=== PATIENT | male | born 1950 | race Caucasian/White ===

== ENCOUNTER 2016-08-15 13:45 | Inpatient (IN) ==
[~2016-08-15 13:45] MED LIST: GLYCOPYRROLATE 0.4 MG/2 ML VIAL ONE; LIDOCAINE 1% 5 ML VIAL ONE; NEOSTIGMINE 10 MG/10 ML VIAL ONE; ONDANSETRON 4 MG/2 ML VIAL ONE; PHENYLEPHRINE 1 MG/10 ML SYRINGE IV ONE; PROPOFOL 200 MG/20 ML VIAL IV ONE; ROCURONIUM 100 MG/10 ML VIAL IV ONE
--- NOTE | 2016-08-15 14:19 | Emergency Department Note ---
Arrival - Arrival Chief Complaint: Extremity Injury Stated Complaint: Hip Pain ED Nursing Triage Note: [facility]. A chair broke with pt two days ago. RLE shortening and rotation noted. Morphine 4 mg and Zofran 4 mg given [employer]. +Movement and sensation. Mode of Arrival: Stretcher Limitations: No Limitations Source: Patient Time Seen by Provider: 08/15/16 14:11 - History of Present Illness HPI Narrative: This 66-year-old white male presents with a history of injuring his hip 2 days ago when a chair he was sitting in collapsed. Initially he went to the ER where he was originally told he had no fracture. He was sent home but could not ambulate and was in persistent pain. Last night he was called by the emergency room to return for reevaluation and was found to have a subcapital fracture of the proximal right femur on CT. The patient is status post a right distal femoral fracture repair by Dr. Guadarrama in October of this year. With that as well as a prior history of CVA and right sided weakness he has had difficulty ambulation even before this most recent injury. Currently at rest in bed, he is in no discomfort or distress. Onset (ago): day(s) (patient presents 2 days post-onset of symptoms) Consistency: constant Severity: moderate Severity scale (1-10): 5 Allergies/Adverse Reactions: Allergies Allergy/AdvReac Type Severity Reaction Status Date / Time No Known Allergies Allergy Unverified 11/05/15 11:49 Home Medications: Home Medications Medication Instructions Recorded Confirmed Type Atorvastatin [Lipitor] 10 mg PO DAILY 11/05/15 08/15/16 History Baclofen 20 mg PO TID 11/05/15 08/15/16 History Citalopram [CeleXA] 20 mg PO DAILY 11/05/15 08/15/16 History Labetalol Tab [Trandate Tab] 200 mg TID 11/05/15 08/15/16 History Nifedipine [Nifedipine ER] 90 mg PO DAILY 11/05/15 08/15/16 History Omeprazole 20 mg DAILY 11/05/15 08/15/16 History hydrALAZINE TAB [Apresoline Tab] 50 mg PO TID 11/05/15 08/15/16 History Albuterol Sulfate [Proair HFA] 2 puff INH Q4H PRN 08/15/16 08/15/16 History Meloxicam [Mobic] 7.5 mg PO DAILY PRN 08/15/16 08/15/16 History Tolterodine Tartrate [Tolterodine 4 mg PO DAILY 08/15/16 08/15/16 History LA] Review of System - Review of System 12 point system: reviewed and no additional remarkable complaints except as stated - Review of System Musculoskeletal: Present: as per HPI Medical,Surgical,& Family Hx - Medical History Cardio: History of: Hypertension Neurology: History of: Cerebrovascular Accident (2009. Right side weakness) Endocrine: History of: Dyslipidemia Genitourinary: History of: Kidney Stones Musculoskeletal: History of: Musculoskeletal Problems (arthritis in L shoulder) - Surgical History Abdominal Surgeries: Surgical HX of: Colonoscopy (2015 dr beltrán) - Family History Family History: Reports;: Family Cancer (mother) - Social History Smoking Status: Unknown if ever smoked Frequency of Alcohol Use: None Type of Drug Use: None Exam Physical Examination: GENERAL: Well developed, well nourished white male in no acute distress. HEENT: Normocephalic. No trauma. Moist mucous membranes. EOMI. PERRLA. ENT clear NECK: Supple. No adenopathy. CARDIAC: Regular. No murmurs heart rate 76 CHEST: Clear to auscultation. No respiratory distress. O2 sat 95% ABDOMEN: Soft. Nontender. Active bowel sounds. EXTREMITIES: No trauma. Shortening and external rotation of the right lower extremity No pedal edema. SKIN: No diaphoresis. No rash. NEURO: Alert. Right upper extremity weakness compared to the left with left lower extremity motor activity intact. Vital Signs: Vital Signs Temperature 97.9 F 08/15/16 13:45 Pulse Rate 76 08/15/16 13:45 Respiratory Rate 18 08/15/16 13:45 Blood Pressure 159/97 08/15/16 13:45 O2 Sat by Pulse Oximetry 95 08/15/16 13:45 Course - Reevaluation(s) Reevaluation #1: Discussed with patient the need for surgical repair. - Consultations Consultation #1: Dr. Guadarrama consulted Disposition Clinical Impression: subcapital fracture proximal right femur, hypertension Case discussed with: patient Disposition: Still a Patient Condition: Stable Time of Disposition: 14:52
[2016-08-15] MEDS ORDERED: HYDROmorphone 2 MG/1 ML VIAL IV PRN (14:54)
[2016-08-15] MEDS ORDERED: ATORVASTATIN 40 MG TABLET PO STA (14:54)
[2016-08-15] MEDS ORDERED: ONDANSETRON 4 MG/2 ML VIAL IV PRN (14:54)
[2016-08-15 15:00] LABS: Basophils % 0.2 % (0.0-0.8); Eosinophils # 0.5 10*3/uL (0.0-0.87); Eosinophils % 4.6 % (0.00-10.9); Hematocrit 36.4 VOL% (42.0-52.0); Hemoglobin 12.7 GM/DL (14.0-18.0); Immature Granulocytes % 0.4 %; Immature Granulocytes Absolute 0.04 #; Lymphocytes % 17.7 % (21.2-54.2); Mean Corpuscular HGB Conc 34.9 GM/DL (32-36); Mean Corpuscular Hemoglobin 31 PG (27-34); Mean Corpuscular Volume 87.3 FL (87-102); Monocytes # 0.7 10*3/uL (0.11-0.8); Monocytes % 6.3 % (1.7-12.7); Neutrophils # 7.8 10*3/uL (1.4-7.4); Neutrophils % 70.8 % (38.7-73.9); Platelet Count 186 10*3/uL (130-400); Red Blood Count 4.17 10*6/uL (3.8-5.5); Red Cell Distribution Width 12.9 % (9.3-17.3)
[2016-08-15] MEDS ORDERED: BACLOFEN 20 MG TABLET PO SCH (15:00)
[2016-08-15] MEDS ORDERED: PANTOPRAZOLE 40 MG TABLET PO SCH (15:00)
--- NOTE | 2016-08-15 15:09 | XRay Report ---
XR chest 1V portable Indication: Preoperative respiratory evaluation.] Fracture. Comparison: Chest x-ray 11/05/2015. Technique: Portable AP chest was performed. Findings: Borderline to mild cardiomegaly is present. Pulmonary vasculature appears within normal limits. Lungs are clear. Minimal elevation of the left hemidiaphragm is noted. Bones and soft tissues are unremarkable. Impression: 1. No evidence of acute pathology. Borderline to mild cardiomegaly. 08/15/2016 3:04 PM PROCEDURE INTERPRETED AT [facility] DEPARTMENT OF RADIOLOGY Final Report Signed by: Dr. Seth Mendoza
--- NOTE | 2016-08-15 15:09 | XRay Report ---
XR hip 2v w pelvis RT Indication: Fracture. Comparison: None. Technique: AP pelvis with additional AP views of the right hip in internal and external rotation. Findings: Femoral neck fracture cannot be excluded at the base of the femoral head. The right hip and femur are not rotated such that the femoral neck can be seen as entirety. Otherwise bony structure of the lower lumbar spine, pelvis, proximal left femur is unremarkable in appearance. Impression: 1. Incomplete visualization of the right femoral neck. The femoral neck fracture at the base of the femoral head is suggested. 08/15/2016 3:03 PM PROCEDURE INTERPRETED AT [facility] DEPARTMENT OF RADIOLOGY Final Report Signed by: Dr. Seth Mendoza
--- NOTE | 2016-08-15 15:11 | EKG Report ---
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
[2016-08-15 15:13] LABS: PT Patient Result 10.8 SECS; Partial Thromboplastin Time 31.9 SECS (0-40)
[2016-08-15 15:17] LABS: Albumin 3.3 G/DL (3.4-5.0); Bilirubin,Total 0.7 MG/DL (0.2-1.0); Calcium 8.4 MG/DL (8.5-10.1); Osmolality,Calculated 296.6 MOS/KG (273-304); Potassium 3.8 MMOL/L (3.5-5.1)
--- NOTE | 2016-08-15 15:51 | Hospitalist Consult Note ---
Assessment and Plan - Time spent with patient Time spent with patient: Greater than 30 minutes (1) Closed fracture of right femur Status: Acute Assessment and plan: Patient has right hip fracture. We will defer plans to the orthopedic service including timing of DVT prophylaxis. I suspect the swelling of his right lower extremity is secondary to his fracture since it did occur Th night he's been relatively sedentary and will obtain venous Doppler to rule out DVT. He is medically acceptable for operative repair pending above studies. Current Visit: No (2) Hyperlipidemia Status: Chronic Assessment and plan: We'll continue his current medical regimen. Current Visit: No (3) Hypertension Status: Chronic Assessment and plan: He is hemodynamically stable. We'll continue his current medical regimen and follow along with you. Current Visit: No Qualifiers: Hypertension type: essential hypertension Qualified Code(s): I10 - Essential (primary) hypertension (4) Chronic kidney disease Status: Chronic Assessment and plan: Patient has chronic kidney disease with a creatinine of 1.7 which is relatively stable. We'll begin hydration and avoid any potential nephrotoxic insults. Current Visit: Yes Qualifiers: Chronic kidney disease stage: stage 3 (moderate) Qualified Code(s): N18.3 - Chronic kidney disease, stage 3 (moderate) (5) CVA (cerebral vascular accident) Status: Chronic Assessment and plan: Patient has had a remote CVA with some mild right-sided weakness however states he has been ambulatory prior to his right lower extremity fracture in October. Since that time he occasionally uses or at least keeps his walker close by. He is otherwise stable has no recent signs or symptoms of new events. Current Visit: No History of Present Illness - Data of Consult Patient: known to practice within the last 3 years Consult date: 08/15/16 Requesting Physician: Tacos Guadarrama Primary care physician: Marv Griffin - Consult Narrative Reason for consult: preoperative evaluation and med management History of present illness: Mr. Braden is a 66 year old male who states he was having dinner Th night when he scooted his chair back and it broke causing him to fall sustaining injury to his right hip. He was seen at the emergency room at [facility] resume was x-rayed and sent home. He was uncomfortable and didn't sleep well night or Wednesday night. His states they got a call from [facility] saying the radiologist found a possible fracture and they needed to return. They were seen today and had a CT which revealed a fracture and he was transferred to [facility]. He denies any fever, chills, chest pain, shortness breath, palpitations, syncope, abdominal pain, nausea, vomiting, diarrhea, constipation , melena, hematochezia, hematemesis, dysuria, hematuria, urinary frequency urgency or incontinence. He's had no prior history of coronary artery disease, CHF, DVT, PE, COPD. Of note he was hospitalized here in October 2015 where he underwent open reduction and internal fixation of right femoral condyle fracture. CC: Tacos Guadarrama MD - Home Medications and Allergies Home Medications: Home Medications Medication Instructions Recorded Confirmed Type Atorvastatin [Lipitor] 10 mg PO DAILY 11/05/15 08/15/16 History Baclofen 20 mg PO TID 11/05/15 08/15/16 History Citalopram [CeleXA] 20 mg PO DAILY 11/05/15 08/15/16 History Labetalol Tab [Trandate Tab] 200 mg TID 11/05/15 08/15/16 History Nifedipine [Nifedipine ER] 90 mg PO DAILY 11/05/15 08/15/16 History Omeprazole 20 mg DAILY 11/05/15 08/15/16 History hydrALAZINE TAB [Apresoline Tab] 50 mg PO TID 11/05/15 08/15/16 History Albuterol Sulfate [Proair HFA] 2 puff INH Q4H PRN 08/15/16 08/15/16 History Meloxicam [Mobic] 7.5 mg PO DAILY PRN 08/15/16 08/15/16 History Tolterodine Tartrate [Tolterodine 4 mg PO DAILY 08/15/16 08/15/16 History LA] Allergies/Adverse Reactions: Allergies Allergy/AdvReac Type Severity Reaction Status Date / Time No Known Allergies Allergy Unverified 11/05/15 11:49 Medical,Surgical,& Family Hx - Medical History Cardio: History of: Hypertension Neurology: History of: Cerebrovascular Accident (2009. Right side weakness) Endocrine: History of: Dyslipidemia Genitourinary: History of: Kidney Stones Musculoskeletal: History of: Musculoskeletal Problems (arthritis in L shoulder) - Surgical History Abdominal Surgeries: Surgical HX of: Colonoscopy (2015 dr beltrán) Orthopedic Surgeries: Surgical HX of;: Orthopedic Surgery (up reduction internal fixation right lateral femoral condyle in October,) - Family History Family History: Reports;: Family Cancer (mother) - Social History Smoking Status: Never smoker Frequency of Alcohol Use: None Type of Drug Use: None Marital Status: Lives With:: Spouse 12 point system: reviewed and no additional remarkable complaints except as stated Exam - Constitutional Vitals: Period Temp Pulse Resp BP Sys/Rincon Pulse Ox Last 24 Hr 73 18 166/89 92 General appearance: no acute distress - Head Head exam: Present: normocephalic, atraumatic - Eye Eye exam: Present: EOMI Pupils: Present: ALIN - ENT ENT exam: Present: normal oropharynx - Neck Neck exam: Absent: lymphadenopathy, meningismus, tenderness, thyromegaly - Respiratory Respiratory exam: Present: clear to auscultation bilaterally. Absent: rales, rhonchi, wheezes - Cardiovascular Cardiovascular exam: Present: regular rate and rhythm. Absent: gallop, JVD, systolic murmur, tachycardia - GI/Abdominal GI/Abdominal exam: Present: normal bowel sounds, soft. Absent: distended, mass , tenderness, rebound - Extremities Exam Extremities exam: Present: normal capillary refill, other (there is tenderness about the right hip. He does have swelling of his right thigh and right calf. Pulses are equal and intact.). Absent: calf tenderness - Back Exam Back exam: Present: normal inspection - Neurological Exam Neurological exam: Present: alert, oriented X3, CN II-XII intact. Absent: motor sensory deficit - Psychiatric Psychiatric exam: Present: normal affect, normal mood. Absent: agitated, anxious - Skin Skin exam: Present: warm, dry. Absent: erythema, rash Results - Labs CBC & BMP: 08/15/16 14:42 08/15/16 14:43 Lab Results: I have reviewed the past 24 hour labs - EKG EKG shows: sinus rhythm - Diagnostic Findings Procedure: Chest x-ray: report reviewed by me, X-ray: report reviewed by me Specialty Discharge - Follow Up or Referrals - Discharge Medications No Action hydrALAZINE TAB [Apresoline Tab] 50 mg PO TID Atorvastatin [Lipitor] 10 mg PO DAILY Citalopram [CeleXA] 20 mg PO DAILY Baclofen 20 mg PO TID Omeprazole 20 mg DAILY Nifedipine [Nifedipine ER] 90 mg PO DAILY Labetalol Tab [Trandate Tab] 200 mg TID Tolterodine Tartrate [Tolterodine LA] 4 mg PO DAILY Albuterol Sulfate [Proair HFA] 2 puff INH Q4H PRN PRN Reason: Shortness Of Breath/Wheezing Meloxicam [Mobic] 7.5 mg PO DAILY PRN PRN Reason: Pain
[2016-08-15] MEDS ORDERED: ALBUTEROL 2.5 MG/3 ML NEB RESP TX PRN (16:12)
[2016-08-15] MEDS: SODIUM CHLOR 0.45% KCL 20 MEQ 20 MEQ/1,000 ML BAG IV SCH (16:57)
--- NOTE | 2016-08-15 18:02 | Orthopedic History & Physical ---
Assessment and Plan (1) Subcapital fracture of neck of right femur Status: Acute Assessment and plan: I explained the injury in detail to Mr. Braden and his today. The fracture is valgus impacted, so I have recommended closed reduction pertains pinning of the right femoral neck. We'll plan on performing the procedure tomorrow. Questions were answered to their satisfaction. Risks, alternatives, and benefits to undergoing this procedure were discussed in great detail, the patient voiced understanding desire proceed. Risks discussed included, but were not limited to, bleeding, infection, damage to arteries and nerves, nonunion, malunion, need for revision surgery, as well as medical complications. He has been having increased falls recently so I think swing bed or rehabilitation postoperatively would be a good consideration. Current Visit: Yes History of Present Illness Chief complaint: right hip pain History of present illness: Mr. Braden is a 66 year old male who had a fall on night. He was seen at [facility] discharged home. On Wednesday, they were called and informed he has suspected fracture and the knee more workup. He was then noted to have a right femoral neck fracture. He is transferred here for further care. He complains of pain in the right hip. I have seen him previously for a right distal femur fracture. He has a history of CVA with spasticity of the right upper and lower extremities. Home Medications Medication Instructions Recorded Confirmed Type Atorvastatin [Lipitor] 10 mg PO DAILY 11/05/15 08/15/16 History Baclofen 20 mg PO TID 11/05/15 08/15/16 History Citalopram [CeleXA] 20 mg PO DAILY 11/05/15 08/15/16 History Labetalol Tab [Trandate Tab] 200 mg TID 11/05/15 08/15/16 History Nifedipine [Nifedipine ER] 90 mg PO DAILY 11/05/15 08/15/16 History Omeprazole 20 mg DAILY 11/05/15 08/15/16 History hydrALAZINE TAB [Apresoline Tab] 50 mg PO TID 11/05/15 08/15/16 History Albuterol Sulfate [Proair HFA] 2 puff INH Q4H PRN 08/15/16 08/15/16 History Meloxicam [Mobic] 7.5 mg PO DAILY 08/15/16 08/15/16 History Tolterodine Tartrate [Tolterodine 4 mg PO DAILY 08/15/16 08/15/16 History LA] Allergies Allergy/AdvReac Type Severity Reaction Status Date / Time No Known Allergies Allergy Unverified 11/05/15 11:49 12 point system: reviewed and no additional remarkable complaints except as stated Medical,Surgical,& Family Hx - Medical History Cardio: History of: Hypertension Neurology: History of: Cerebrovascular Accident (2009. Right side weakness) HEENT: History of: Eye Problem Endocrine: History of: Dyslipidemia Genitourinary: History of: Kidney Stones Musculoskeletal: History of: Musculoskeletal Problems (arthritis in L shoulder) - Surgical History Abdominal Surgeries: Surgical HX of: Appendectomy, Colonoscopy (2015 dr beltrán) Orthopedic Surgeries: Surgical HX of;: Orthopedic Surgery (up reduction internal fixation right lateral femoral condyle in October,) - Family History Family History: Reports;: Family Cancer (mother), Family Heart Disease, Family Hypertension - Social History Smoking Status: Never smoker Frequency of Alcohol Use: None Type of Drug Use: None Exam - Constitutional Vitals: Period Temp Pulse Resp BP Sys/Rincon Pulse Ox Last 24 Hr 98.2 F 73-73 17-18 117-166/61-89 92-98 Exam: General appearance: no acute distress Head exam: normal inspection Eye exam: EOMI Neck exam: normal inspection Respiratory exam: clear to auscultation bilaterally Cardiovascular exam: regular GI/Abdominal exam: normal bowel sounds Right lower extremity: Hip was externally rotated, knee slightly flexed. He has a good distal pulse. He has pain with any motion of the hip. There is no ecchymosis or obvious deformity noted. Results - Labs CBC & BMP: 08/15/16 14:42 08/15/16 14:43 - Diagnostic Findings Procedure: X-ray: image reviewed by me (x-ray and CT of the right hip show a valgus impacted fracture right femoral neck in the subcapital region)
[2016-08-15] MEDS ORDERED: ceFAZolin 2,000 MG in PREMIX 1 EACH IV ONE (18:04)
--- NOTE | 2016-08-15 19:09 | Ultrasound Report ---
US venous doppler LE RT Indication: Right lower extremity pain and swelling. Comparison: None. Technique: Using transcutaneous probe, color Doppler, spectral Doppler, and grayscale images prior to and following compression were obtained of the right lower extremity. Ultrasound images were captured and stored. Interrogated venous structures include the right common femoral vein, superficial femoral vein (proximal, mid, and distal), and popliteal vein. Findings: There is no evidence of thrombus within the interrogated right lower extremity venous structures. Color flow and spectral flow are present within the imaged venous segments. Impression: 1. No evidence of venous thrombosis. 08/15/2016 7:06 PM PROCEDURE INTERPRETED AT [facility] DEPARTMENT OF RADIOLOGY Final Report Signed by: Dr. Seth Mendoza
[2016-08-15] MEDS ORDERED: TOLTERODINE 2 MG TABLET PO SCH (21:00)
[2016-08-15] MEDS: BACLOFEN 20 MG TABLET PO SCH (21:51)
[2016-08-15] MEDS: LABETALOL 200 MG TABLET PO SCH (21:51)
[2016-08-16] MEDS: SODIUM CHLOR 0.45% KCL 20 MEQ 20 MEQ/1,000 ML BAG IV SCH ×3 (00:53→18:33)
[2016-08-16] MEDS ORDERED: HYDROmorphone 2 MG/1 ML VIAL IV PRN (02:52)
[2016-08-16] MEDS ORDERED: diphenhydrAMINE 50 MG/1 ML VIAL IV PRN (02:53)
[2016-08-16 04:42] LABS: Basophils % 0.3 % (0.0-0.8); Eosinophils # 0.6 10*3/uL (0.0-0.87); Eosinophils % 6.4 % (0.00-10.9); Hematocrit 35.5 VOL% (42.0-52.0); Hemoglobin 11.9 GM/DL (14.0-18.0); Immature Granulocytes % 0.6 %; Immature Granulocytes Absolute 0.06 #; Lymphocytes # 2.1 10*3/uL (1.4-4.0); Lymphocytes % 21.4 % (21.2-54.2); Mean Corpuscular HGB Conc 33.5 GM/DL (32-36); Mean Corpuscular Hemoglobin 30 PG (27-34); Mean Platelet Volume 9.4 FL (9.6-12.0); Monocytes # 0.7 10*3/uL (0.11-0.8); Monocytes % 7.3 % (1.7-12.7); Neutrophils # 6.3 10*3/uL (1.4-7.4); Platelet Count 188 10*3/uL (130-400); Red Blood Count 3.99 10*6/uL (3.8-5.5); Red Cell Distribution Width 13.1 % (9.3-17.3); White Blood Count 9.9 10*3/uL (4.5-13.71)
[2016-08-16 05:12] LABS: Calcium 8.4 MG/DL (8.5-10.1); Osmolality,Calculated 295.7 MOS/KG (273-304); Potassium 3.9 MMOL/L (3.5-5.1)
[2016-08-16] MEDS ORDERED: ceFAZolin 2,000 MG in PREMIX 1 EACH IV ONE (06:00)
[2016-08-16] MEDS ORDERED: DIAZEPAM 5 MG TABLET PO ONE (06:26)
[2016-08-16] MEDS ORDERED: FAMOTIDINE 20 MG TABLET PO ONE (06:26)
[2016-08-16] MEDS ORDERED: LACTATED RINGERS 1,000 ML IV SCH (06:30)
--- NOTE | 2016-08-16 07:01 | Hospitalist Progress Note ---
Assessment and Plan - Time spent with patient Time spent with patient: Less than 30 minutes (1) Closed fracture of right femur Status: Acute Assessment and plan: 08/15/16: Patient has right hip fracture. We will defer plans to the orthopedic service including timing of DVT prophylaxis. I suspect the swelling of his right lower extremity is secondary to his fracture since it did occur Th night he's been relatively sedentary and will obtain venous Doppler to rule out DVT. He is medically acceptable for operative repair pending above studies. 08/16/16: Patient is now postop without complaints and is doing well. Further postop care per orthopedics. Current Visit: No (2) Hyperlipidemia Status: Chronic Assessment and plan: We'll continue his current medical regimen. Current Visit: No (3) Hypertension Status: Chronic Assessment and plan: Blood pressures currently controlled. We'll continue his current regimen. Current Visit: No Qualifiers: Hypertension type: essential hypertension Qualified Code(s): I10 - Essential (primary) hypertension (4) Chronic kidney disease Status: Chronic Assessment and plan: 08/15/16: Patient has chronic kidney disease with a creatinine of 1.7 which is relatively stable. We'll begin hydration and avoid any potential nephrotoxic insults. 08/16/16: Renal function is stable. We'll continue to follow. Current Visit: Yes Qualifiers: Chronic kidney disease stage: stage 3 (moderate) Qualified Code(s): N18.3 - Chronic kidney disease, stage 3 (moderate) (5) CVA (cerebral vascular accident) Status: Chronic Assessment and plan: Patient has had a remote CVA with some mild right-sided weakness however states he has been ambulatory prior to his right lower extremity fracture in October. Since that time he occasionally uses or at least keeps his walker close by. He is otherwise stable has no recent signs or symptoms of new events. Current Visit: No Hospitalist: Subjective Interval history: Patient is now postop in the room. He has no complaints and his eating lunch. He denies any chest pain, shortness breath, abdominal pain, nausea, vomiting. Exam - Constitutional Vitals: Period Temp Pulse Resp BP Sys/Rincon Pulse Ox Last 24 Hr 97.8 F-99.2 F 70-88 17-20 117-166/61-89 92-99 General appearance: no acute distress - Head Head exam: Present: normocephalic, atraumatic - Eye Eye exam: Present: EOMI Pupils: Present: ALIN - ENT ENT exam: Present: normal oropharynx - Neck Neck exam: Present: normal inspection - Respiratory Respiratory exam: Present: clear to auscultation bilaterally. Absent: rales, rhonchi, wheezes - Cardiovascular Cardiovascular exam: Present: regular rate and rhythm - GI/Abdominal GI/Abdominal exam: Present: normal bowel sounds, soft. Absent: mass, tenderness , rebound - Extremities Exam Extremities exam: Absent: calf tenderness, edema - Back Exam Back exam: Present: normal inspection - Neurological Exam Neurological exam: Present: alert, oriented X3, CN II-XII intact. Absent: motor sensory deficit - Psychiatric Psychiatric exam: Present: normal affect, normal mood. Absent: agitated, anxious - Skin Skin exam: Present: warm, dry. Absent: erythema, rash Results - Labs CBC & BMP: 08/16/16 04:05 08/16/16 04:05 Lab Results: I have reviewed the past 24 hour labs - Diagnostic Findings Procedure: Ultrasound: report reviewed by me (No DVT) Specialty Discharge - Follow Up or Referrals - Discharge Medications No Action hydrALAZINE TAB [Apresoline Tab] 50 mg PO TID Atorvastatin [Lipitor] 10 mg PO DAILY Citalopram [CeleXA] 20 mg PO DAILY Baclofen 20 mg PO TID Omeprazole 20 mg DAILY Nifedipine [Nifedipine ER] 90 mg PO DAILY Labetalol Tab [Trandate Tab] 200 mg TID Tolterodine Tartrate [Tolterodine LA] 4 mg PO DAILY Albuterol Sulfate [Proair HFA] 2 puff INH Q4H PRN PRN Reason: Shortness Of Breath/Wheezing Meloxicam [Mobic] 7.5 mg PO DAILY
[2016-08-16] MEDS ORDERED: MAGNESIUM HYDROXIDE SUSP 30 ML UDCUP PO PRN (08:00)
[2016-08-16] MEDS ORDERED: ACETAMINOPHEN 325 MG TABLET PO PRN (08:00)
[2016-08-16] MEDS ORDERED: ePHEDrine 50 MG/ML AMP ONE (08:16)
[2016-08-16] MEDS ORDERED: SEVOFLURANE 1 UNIT/15 MINUTE INH ONE (08:20)
--- NOTE | 2016-08-16 08:24 | Anesthesia ---
Anesthesia Post OP - Post Ansesthetic Evaluation Patient seen in post op: Yes Resp: within normal limits CV: within normal limits Mental: within normal limits Temp: within normal limits [id number]: within normal limits Nausea and Vomiting: within normal limits Pain: within normal limits
[2016-08-16] MEDS ORDERED: CITALOPRAM 20 MG TABLET PO SCH (09:00)
[2016-08-16] MEDS ORDERED: LABETALOL 100 MG TABLET PO SCH (09:00)
[2016-08-16] MEDS ORDERED: TOLTERODINE LA 4 MG CAPSULE PO SCH (09:00)
--- NOTE | 2016-08-16 09:55 | XRay Report ---
History: Right hip fracture undergoing ORIF Date: 08/16/2016 Study: 2 views right hip performed at surgery Comparison exam: Right hip x-ray 08/15/2016 Intraoperative views of the hip document placement of 3 orthopedic screws across the subcapital fracture by Dr. Guadarrama. There is relatively good alignment and positioning on the views submitted. 47.7 seconds fluoroscopy time was utilized. Impression: Relatively good alignment and positioning of the subcapital fracture of the right hip following ORIF PROCEDURE INTERPRETED AT [facility] DEPARTMENT OF RADIOLOGY Final Report Signed by: Dr. Lindsay Jauregui
[2016-08-16] MEDS: DOCUSATE SODIUM 100 MG CAPSULE PO SCH ×2 (10:31→21:01)
[2016-08-16] MEDS: LABETALOL 200 MG TABLET PO SCH ×3 (10:32→21:01)
[2016-08-16] MEDS: ATORVASTATIN 10 MG TABLET PO SCH (10:32)
[2016-08-16] MEDS: BACLOFEN 20 MG TABLET PO SCH ×3 (10:32→21:01)
[2016-08-16] MEDS: CITALOPRAM 20 MG TABLET PO SCH (10:32)
--- NOTE | 2016-08-16 11:57 | XRay Report ---
History: Right hip fracture now postop ORIF Date: 08/16/2016 Study: Right hip single view Comparison exam: Right hip x-ray 08/15/2016 The patient is immediately postop ORIF. 3 orthopedic screws stabilize the subcapital fracture of the right hip with excellent alignment and position. Skin tamera overlie the soft tissues lateral to the hip. There is no radiographic evidence of complication. Impression: Subcapital fracture right hip, now status post ORIF PROCEDURE INTERPRETED AT [facility] DEPARTMENT OF RADIOLOGY Final Report Signed by: Dr. Lindsay Jauregui
[2016-08-16] MEDS: DEXTROSE 5% NACL 0.45% 1,000 ML IV SCH ×2 (13:52→18:31)
[2016-08-16] MEDS: ACETAMINOPHEN 500 MG TABLET PO SCH ×2 (13:54→18:46)
[2016-08-16] MEDS: PANTOPRAZOLE 40 MG TABLET PO SCH (13:55)
[2016-08-16] MEDS: ceFAZolin 2,000 MG in PREMIX 1 EACH IV SCH ×2 (13:56→21:04)
[2016-08-16] MEDS: TOLTERODINE LA 4 MG CAPSULE PO SCH (21:02)
[2016-08-17] MEDS: ACETAMINOPHEN 500 MG TABLET PO SCH ×2 (00:34→06:52)
[2016-08-17] MEDS: SODIUM CHLOR 0.45% KCL 20 MEQ 20 MEQ/1,000 ML BAG IV SCH ×3 (03:48→16:59)
[2016-08-17] MEDS: ENOXAPARIN 40 MG/0.4 ML SYRINGE SUBCUT SCH (03:49)
[2016-08-17 05:56] LABS: Basophils % 0.3 % (0.0-0.8); Eosinophils # 0.6 10*3/uL (0.0-0.87); Eosinophils % 7.4 % (0.00-10.9); Hematocrit 31.2 VOL% (42.0-52.0); Hemoglobin 10.8 GM/DL (14.0-18.0); Immature Granulocytes % 0.4 %; Immature Granulocytes Absolute 0.03 #; Lymphocytes # 1.8 10*3/uL (1.4-4.0); Mean Corpuscular HGB Conc 34.6 GM/DL (32-36); Mean Corpuscular Hemoglobin 30 PG (27-34); Mean Corpuscular Volume 87.9 FL (87-102); Mean Platelet Volume 9.1 FL (9.6-12.0); Monocytes # 0.7 10*3/uL (0.11-0.8); Monocytes % 8.6 % (1.7-12.7); Neutrophils # 4.5 10*3/uL (1.4-7.4); Neutrophils % 59.3 % (38.7-73.9); Platelet Count 153 10*3/uL (130-400); Red Blood Count 3.55 10*6/uL (3.8-5.5); Red Cell Distribution Width 12.9 % (9.3-17.3); White Blood Count 7.5 10*3/uL (4.5-13.71)
[2016-08-17 06:29] LABS: Calcium 7.9 MG/DL (8.5-10.1)
[2016-08-17 06:30] LABS: Osmolality,Calculated 293.6 MOS/KG (273-304); Potassium 3.6 MMOL/L (3.5-5.1)
--- NOTE | 2016-08-17 09:32 | Hospitalist Progress Note ---
Assessment and Plan (1) Closed fracture of right femur Status: Acute Assessment and plan: Stable postoperative undergoing PT. Current Visit: No (2) Hypertension Status: Chronic Assessment and plan: Well controlled at 116/72 today. Current Visit: No Qualifiers: Hypertension type: essential hypertension Qualified Code(s): I10 - Essential (primary) hypertension (3) Chronic kidney disease Status: Chronic Assessment and plan: Renal function has improved with BUN and creatinine today at 25 and 1.2. This is compatible with RAVEN that is now resolving. Current Visit: Yes Qualifiers: Chronic kidney disease stage: stage 3 (moderate) Qualified Code(s): N18.3 - Chronic kidney disease, stage 3 (moderate) (4) Anemia Status: Acute Assessment and plan: His H/H has decreased mildly postoperative compatible with operative blood loss. No specific treatment at this time. Current Visit: Yes Qualifiers: Anemia type: unspecified type Qualified Code(s): D64.9 - Anemia, unspecified Exam - Constitutional Vitals: Period Temp Pulse Resp BP Sys/Rincon Pulse Ox Last 24 Hr 96.3 F-98.1 F 63-76 18-20 110-158/55-91 90-97 General appearance: no acute distress - Respiratory Respiratory exam: Present: clear to auscultation bilaterally - Cardiovascular Cardiovascular exam: Present: regular rate and rhythm - GI/Abdominal GI/Abdominal exam: Present: normal bowel sounds, soft, other (nontender) - Extremities Exam Extremities exam: Present: normal inspection - Skin Skin exam: Present: normal color Results - Labs CBC & BMP: 08/17/16 05:32 08/17/16 05:32 Specialty Discharge - Follow Up or Referrals - Discharge Medications No Action hydrALAZINE TAB [Apresoline Tab] 50 mg PO TID Atorvastatin [Lipitor] 10 mg PO DAILY Citalopram [CeleXA] 20 mg PO DAILY Baclofen 20 mg PO TID Omeprazole 20 mg DAILY Nifedipine [Nifedipine ER] 90 mg PO DAILY Labetalol Tab [Trandate Tab] 200 mg TID Tolterodine Tartrate [Tolterodine LA] 4 mg PO DAILY Albuterol Sulfate [Proair HFA] 2 puff INH Q4H PRN PRN Reason: Shortness Of Breath/Wheezing Meloxicam [Mobic] 7.5 mg PO DAILY
[2016-08-17] MEDS: DEXTROSE 5% NACL 0.45% 1,000 ML IV SCH (09:48)
[2016-08-17] MEDS: CITALOPRAM 20 MG TABLET PO SCH (09:49)
[2016-08-17] MEDS: ATORVASTATIN 10 MG TABLET PO SCH (09:50)
[2016-08-17] MEDS: PANTOPRAZOLE 40 MG TABLET PO SCH (09:50)
[2016-08-17] MEDS: BACLOFEN 20 MG TABLET PO SCH ×3 (09:50→20:42)
[2016-08-17] MEDS: LABETALOL 200 MG TABLET PO SCH ×3 (09:51→20:42)
[2016-08-17] MEDS: DOCUSATE SODIUM 100 MG CAPSULE PO SCH ×2 (14:22→20:42)
[2016-08-17] MEDS: TOLTERODINE LA 4 MG CAPSULE PO SCH (20:42)
[2016-08-18] MEDS: ENOXAPARIN 40 MG/0.4 ML SYRINGE SUBCUT SCH (01:27)
[2016-08-18 05:53] LABS: Basophils % 0.4 % (0.0-0.8); Eosinophils # 0.6 10*3/uL (0.0-0.87); Eosinophils % 6.9 % (0.00-10.9); Hematocrit 33.6 VOL% (42.0-52.0); Hemoglobin 11.7 GM/DL (14.0-18.0); Immature Granulocytes % 0.2 %; Immature Granulocytes Absolute 0.02 #; Lymphocytes # 1.8 10*3/uL (1.4-4.0); Lymphocytes % 22.2 % (21.2-54.2); Mean Corpuscular HGB Conc 34.8 GM/DL (32-36); Mean Corpuscular Hemoglobin 30 PG (27-34); Mean Corpuscular Volume 86.2 FL (87-102); Mean Platelet Volume 9.1 FL (9.6-12.0); Monocytes # 0.6 10*3/uL (0.11-0.8); Monocytes % 6.9 % (1.7-12.7); Neutrophils # 5.2 10*3/uL (1.4-7.4); Neutrophils % 63.4 % (38.7-73.9); Platelet Count 177 10*3/uL (130-400); Red Cell Distribution Width 12.9 % (9.3-17.3); White Blood Count 8.2 10*3/uL (4.5-13.71)
--- NOTE | 2016-08-18 07:31 | Orthopedic Progress Note ---
Assessment and Plan (1) Subcapital fracture of neck of right femur Status: Acute Assessment and plan: Out of bed with PT Weight-bear as tolerated on the extremity Social work for discharge planning Current Visit: Yes Orthopediatrics - Subjective Interval history: Pain is currently controlled. He was able to get out of bed with therapy yesterday. On exam his dressings clean and dry Exam - Constitutional Vitals: Period Temp Pulse Resp BP Sys/Rincon Pulse Ox Last 24 Hr 97.2 F-99.2 F 65-88 16-20 133-169/68-77 91-95 Results - Labs CBC & BMP: 08/18/16 05:29 08/17/16 05:32 Specialty Discharge - Follow Up or Referrals - Discharge Medications No Action hydrALAZINE TAB [Apresoline Tab] 50 mg PO TID Atorvastatin [Lipitor] 10 mg PO DAILY Citalopram [CeleXA] 20 mg PO DAILY Baclofen 20 mg PO TID Omeprazole 20 mg DAILY Nifedipine [Nifedipine ER] 90 mg PO DAILY Labetalol Tab [Trandate Tab] 200 mg TID Tolterodine Tartrate [Tolterodine LA] 4 mg PO DAILY Albuterol Sulfate [Proair HFA] 2 puff INH Q4H PRN PRN Reason: Shortness Of Breath/Wheezing Meloxicam [Mobic] 7.5 mg PO DAILY
[2016-08-18] MEDS: BACLOFEN 20 MG TABLET PO SCH ×3 (08:58→23:09)
[2016-08-18] MEDS: DOCUSATE SODIUM 100 MG CAPSULE PO SCH ×2 (08:58→23:10)
[2016-08-18] MEDS: ATORVASTATIN 10 MG TABLET PO SCH (08:58)
[2016-08-18] MEDS: CITALOPRAM 20 MG TABLET PO SCH (08:58)
[2016-08-18] MEDS: LABETALOL 200 MG TABLET PO SCH ×3 (08:58→23:10)
[2016-08-18] MEDS: PANTOPRAZOLE 40 MG TABLET PO SCH (08:58)
--- NOTE | 2016-08-18 10:04 | Hospitalist Progress Note ---
Assessment and Plan (1) Closed fracture of right femur Status: Acute Assessment and plan: Stable postoperative undergoing PT. Discharge when arrangements have been made. Current Visit: No (2) Hypertension Status: Chronic Assessment and plan: Well controlled at 116/72 today. Current Visit: No Qualifiers: Hypertension type: essential hypertension Qualified Code(s): I10 - Essential (primary) hypertension (3) Chronic kidney disease Status: Chronic Assessment and plan: Renal function has improved with BUN and creatinine today at 25 and 1.2. This is compatible with RAVEN that is now resolving. Current Visit: Yes Qualifiers: Chronic kidney disease stage: stage 3 (moderate) Qualified Code(s): N18.3 - Chronic kidney disease, stage 3 (moderate) (4) Anemia Status: Acute Assessment and plan: His H/H has decreased mildly postoperative compatible with operative blood loss. No specific treatment at this time. Current Visit: Yes Qualifiers: Anemia type: unspecified type Qualified Code(s): D64.9 - Anemia, unspecified Exam - Constitutional Vitals: Period Temp Pulse Resp BP Sys/Rincon Pulse Ox Last 24 Hr 97.6 F-99.2 F 69-88 18-20 138-169/68-77 91-95 General appearance: no acute distress - Head Head exam: Present: normal inspection - Neck Neck exam: Present: normal inspection - Respiratory Respiratory exam: Present: clear to auscultation bilaterally - Cardiovascular Cardiovascular exam: Present: regular rate and rhythm - GI/Abdominal GI/Abdominal exam: Present: soft, other (nontender) - Extremities Exam Extremities exam: Present: normal inspection - Skin Skin exam: Present: normal color Results - Labs CBC & BMP: 08/18/16 05:29 08/17/16 05:32 Specialty Discharge - Follow Up or Referrals - Discharge Medications No Action hydrALAZINE TAB [Apresoline Tab] 50 mg PO TID Atorvastatin [Lipitor] 10 mg PO DAILY Citalopram [CeleXA] 20 mg PO DAILY Baclofen 20 mg PO TID Omeprazole 20 mg DAILY Nifedipine [Nifedipine ER] 90 mg PO DAILY Labetalol Tab [Trandate Tab] 200 mg TID Tolterodine Tartrate [Tolterodine LA] 4 mg PO DAILY Albuterol Sulfate [Proair HFA] 2 puff INH Q4H PRN PRN Reason: Shortness Of Breath/Wheezing Meloxicam [Mobic] 7.5 mg PO DAILY
[2016-08-18] MEDS: TOLTERODINE LA 4 MG CAPSULE PO SCH (23:18)
[2016-08-19] MEDS: ENOXAPARIN 40 MG/0.4 ML SYRINGE SUBCUT SCH (02:47)
[2016-08-19 06:09] LABS: Basophils % 0.4 % (0.0-0.8); Eosinophils # 0.4 10*3/uL (0.0-0.87); Eosinophils % 4.1 % (0.00-10.9); Hematocrit 35.2 VOL% (42.0-52.0); Hemoglobin 12.3 GM/DL (14.0-18.0); Immature Granulocytes % 0.4 %; Immature Granulocytes Absolute 0.04 #; Lymphocytes # 2.1 10*3/uL (1.4-4.0); Lymphocytes % 21.8 % (21.2-54.2); Mean Corpuscular HGB Conc 34.9 GM/DL (32-36); Mean Corpuscular Hemoglobin 30 PG (27-34); Mean Corpuscular Volume 86.9 FL (87-102); Monocytes # 0.8 10*3/uL (0.11-0.8); Monocytes % 8.5 % (1.7-12.7); Neutrophils # 6.2 10*3/uL (1.4-7.4); Neutrophils % 64.8 % (38.7-73.9); Platelet Count 209 10*3/uL (130-400); Red Blood Count 4.05 10*6/uL (3.8-5.5); Red Cell Distribution Width 12.8 % (9.3-17.3); White Blood Count 9.6 10*3/uL (4.5-13.71)
--- NOTE | 2016-08-19 08:02 | Orthopedic Progress Note ---
Assessment and Plan (1) Subcapital fracture of neck of right femur Status: Acute Assessment and plan: Out of bed with PT Weight-bear as tolerated on the extremity Knee immobilizer while in bed Discharge planning Current Visit: Yes Orthopediatrics - Subjective Interval history: Patient complains of spasms in the right leg as well as right hip pain. He was able ambulate to the hallway with therapy yesterday. On exam his dressings clean and dry Exam - Constitutional Vitals: Period Temp Pulse Resp BP Sys/Rincon Pulse Ox Last 24 Hr 97.7 F-99.4 F 73-80 18-20 129-141/69-77 92-96 Results - Labs CBC & BMP: 08/19/16 05:41 08/17/16 05:32 Specialty Discharge - Follow Up or Referrals - Discharge Medications No Action hydrALAZINE TAB [Apresoline Tab] 50 mg PO TID Atorvastatin [Lipitor] 10 mg PO DAILY Citalopram [CeleXA] 20 mg PO DAILY Baclofen 20 mg PO TID Omeprazole 20 mg DAILY Nifedipine [Nifedipine ER] 90 mg PO DAILY Labetalol Tab [Trandate Tab] 200 mg TID Tolterodine Tartrate [Tolterodine LA] 4 mg PO DAILY Albuterol Sulfate [Proair HFA] 2 puff INH Q4H PRN PRN Reason: Shortness Of Breath/Wheezing Meloxicam [Mobic] 7.5 mg PO DAILY
--- NOTE | 2016-08-19 08:35 | Hospitalist Progress Note ---
Assessment and Plan (1) Closed fracture of right femur Status: Acute Assessment and plan: Stable postoperative undergoing PT. He is ready for discharge. I await placement.. Current Visit: No (2) Hypertension Status: Chronic Assessment and plan: Well controlled at 138/77 today. Current Visit: No Qualifiers: Hypertension type: essential hypertension Qualified Code(s): I10 - Essential (primary) hypertension (3) Chronic kidney disease Status: Chronic Assessment and plan: Renal function has improved with BUN and creatinine today at 25 and 1.2. This is compatible with RAVEN that is now resolving. Current Visit: Yes Qualifiers: Chronic kidney disease stage: stage 3 (moderate) Qualified Code(s): N18.3 - Chronic kidney disease, stage 3 (moderate) (4) Anemia Status: Acute Assessment and plan: His H/H has decreased mildly postoperative compatible with operative blood loss. No specific treatment at this time. Current Visit: Yes Qualifiers: Anemia type: unspecified type Qualified Code(s): D64.9 - Anemia, unspecified Hospitalist: Subjective Interval history: He is comfortable with no complaints. Exam - Constitutional Vitals: Period Temp Pulse Resp BP Sys/Rincon Pulse Ox Last 24 Hr 97.7 F-99.4 F 73-80 18-20 129-141/69-77 92-96 General appearance: no acute distress - Head Head exam: Present: normal inspection - Neck Neck exam: Present: normal inspection - Respiratory Respiratory exam: Present: clear to auscultation bilaterally - Cardiovascular Cardiovascular exam: Present: regular rate and rhythm - GI/Abdominal GI/Abdominal exam: Present: normal bowel sounds, soft - Extremities Exam Extremities exam: Present: normal inspection - Skin Skin exam: Present: normal color Results - Labs CBC & BMP: 08/19/16 05:41 08/17/16 05:32 Specialty Discharge - Follow Up or Referrals - Discharge Medications No Action hydrALAZINE TAB [Apresoline Tab] 50 mg PO TID Atorvastatin [Lipitor] 10 mg PO DAILY Citalopram [CeleXA] 20 mg PO DAILY Baclofen 20 mg PO TID Omeprazole 20 mg DAILY Nifedipine [Nifedipine ER] 90 mg PO DAILY Labetalol Tab [Trandate Tab] 200 mg TID Tolterodine Tartrate [Tolterodine LA] 4 mg PO DAILY Albuterol Sulfate [Proair HFA] 2 puff INH Q4H PRN PRN Reason: Shortness Of Breath/Wheezing Meloxicam [Mobic] 7.5 mg PO DAILY
[2016-08-19] MEDS: CITALOPRAM 20 MG TABLET PO SCH (09:55)
[2016-08-19] MEDS: BACLOFEN 20 MG TABLET PO SCH ×3 (09:56→21:44)
[2016-08-19] MEDS: DOCUSATE SODIUM 100 MG CAPSULE PO SCH ×2 (09:56→21:45)
[2016-08-19] MEDS: ATORVASTATIN 10 MG TABLET PO SCH (09:56)
[2016-08-19] MEDS: LABETALOL 200 MG TABLET PO SCH ×3 (09:56→21:44)
[2016-08-19] MEDS: PANTOPRAZOLE 40 MG TABLET PO SCH (09:56)
[2016-08-19] MEDS ORDERED: ZALEPLON 5 MG CAPSULE PO PRN (20:54)
[2016-08-19] MEDS: TOLTERODINE LA 4 MG CAPSULE PO SCH (21:45)
[2016-08-20] MEDS: ENOXAPARIN 40 MG/0.4 ML SYRINGE SUBCUT SCH (02:22)
--- NOTE | 2016-08-20 07:59 | Orthopedic Progress Note ---
Assessment and Plan (1) Subcapital fracture of neck of right femur Status: Acute Assessment and plan: Out of bed with PT Weight-bear as tolerated on the extremity Knee immobilizer while in bed Discharge to swing bed when bed is available Current Visit: Yes Orthopediatrics - Subjective Interval history: No new complaints, patient ambulated into the hallway yesterday. Leg spasms or better within the immobilizer in place On exam his dressings clean and dry Exam - Constitutional Vitals: Period Temp Pulse Resp BP Sys/Rincon Pulse Ox Last 24 Hr 97.8 F-98.4 F 58-74 18-20 134-163/69-95 90-97 Results - Labs CBC & BMP: 08/19/16 05:41 08/17/16 05:32 Specialty Discharge - Follow Up or Referrals Follow up with: Tacos Guadarrama MD [Physician] - - Discharge Medications No Action hydrALAZINE TAB [Apresoline Tab] 50 mg PO TID Atorvastatin [Lipitor] 10 mg PO DAILY Citalopram [CeleXA] 20 mg PO DAILY Baclofen 20 mg PO TID Omeprazole 20 mg DAILY Nifedipine [Nifedipine ER] 90 mg PO DAILY Labetalol Tab [Trandate Tab] 200 mg TID Tolterodine Tartrate [Tolterodine LA] 4 mg PO DAILY Albuterol Sulfate [Proair HFA] 2 puff INH Q4H PRN PRN Reason: Shortness Of Breath/Wheezing Meloxicam [Mobic] 7.5 mg PO DAILY
--- NOTE | 2016-08-20 08:02 | Discharge Summary ---
Hospital Course - Hospital Course Hospital Course: 66-year-old male admitted to hospital with a minimally displaced right femoral neck fracture. He underwent closed reduction pinning without difficulty. He was transferred floor in stable condition postoperatively. He received routine antibiotics and thromboprophylaxis. He was a little bit slow to get around physical therapy due to the pain and spasm in the right leg. 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 I felt would be safe for him to be discharged to swing bed for a few weeks for additional physical therapy. Once a bed was available, he was subsequent discharge. At the time of discharge, his wounds clean and dry Diagnosis - Discharge Diagnosis (1) Subcapital fracture of neck of right femur Status: Acute Specialty Discharge - Follow Up or Referrals Follow up with: Tacos Guadarrama MD [Physician] - - Discharge Medications No Action hydrALAZINE TAB [Apresoline Tab] 50 mg PO TID Atorvastatin [Lipitor] 10 mg PO DAILY Citalopram [CeleXA] 20 mg PO DAILY Baclofen 20 mg PO TID Omeprazole 20 mg DAILY Nifedipine [Nifedipine ER] 90 mg PO DAILY Labetalol Tab [Trandate Tab] 200 mg TID Tolterodine Tartrate [Tolterodine LA] 4 mg PO DAILY Albuterol Sulfate [Proair HFA] 2 puff INH Q4H PRN PRN Reason: Shortness Of Breath/Wheezing Meloxicam [Mobic] 7.5 mg PO DAILY Discharge Plan - Discharge Data Disposition: Swing Bed W Planned Readmit Condition at Discharge: Stable Discharge Diet: advance to your usual diet Activity: ambulate only with your walker Hygiene: may shower Weight Bearing at Discharge: weight bear as tolerated Contact your physician if you experience:: fever over 101, Difficulty voiding, Redness or swelling, Nausea/Vomiting, Shortness of breath, Bleeding, pain uncontrolled by pain medications Wound / Dressing Care Instructions: Begin daily dressing change on Wednesday, 08/21. Ghulam out 08/31/2015 - Discharge Medications New Acetaminophen Tab [Tylenol Tab] 650 mg PO Q6H PRN #0 tablet PRN Reason: Pain Mild (1-3) Docusate Sodium Cap [Colace Cap] 100 mg PO BID capsule HYDROcodone/ACETAMIN 7.5-325 [[place] 7.5-325] 1 tablet PO Q4H PRN #0 tablet PRN Reason: Pain Moderate (4-7) Aspirin EC Tab 325 mg PO DAILY #30 tablet Continue hydrALAZINE TAB [Apresoline Tab] 50 mg PO TID Atorvastatin [Lipitor] 10 mg PO DAILY Citalopram [CeleXA] 20 mg PO DAILY Baclofen 20 mg PO TID Omeprazole 20 mg DAILY Nifedipine [Nifedipine ER] 90 mg PO DAILY Labetalol Tab [Trandate Tab] 200 mg TID Tolterodine Tartrate [Tolterodine LA] 4 mg PO DAILY Albuterol Sulfate [Proair HFA] 2 puff INH Q4H PRN PRN Reason: Shortness Of Breath/Wheezing Meloxicam [Mobic] 7.5 mg PO DAILY - Follow Up or Referral Follow Up: Tacos Guadarrama MD [Physician] - 2 Weeks - Forms/Instructions Additional Discharge Instructions: Weight-bear as tolerated right lower extremity. Knee immobilizer when in bed for comfort. Okay to shower, no tub soaks Exam - Constitutional Vitals: Period Temp Pulse Resp BP Sys/Rincon Pulse Ox Last 24 Hr 97.8 F-98.4 F 58-74 18-20 134-163/69-95 90-97 DS: Provider Date of admission: 08/15/16 14:53 Primary care physician: . No PCP Attending physician on admission: Tacos Guadarrama MD Consults: 08/16/16 08:00 Consult to Occupational Therapy [CONS] Routine Reason for Occupational Therapy: Evaluate and Treat Consult to Physical Therapy [CONS] Routine Reason for Physical Therapy: Evaluate and Treat Start Therapy: Tomorrow Consult Comment: WBAT, pt may need platform walker 08/16/16 08:09 Consult to Pharmacy [CONS] Routine Reason for Pharmacy Consult: Adjust Meds Renal Funct 08/17/16 07:59 Consult to Case Mgmt/Social Srvs [CONS] Routine Reason for Case Mgmt/Social Srvs: Discharge Planning Rehab Swingbed/SNF/Longterm 08/18/16 10:04 Consult to Case Mgmt/Social Srvs [CONS] Routine Reason for Case Mgmt/Social Srvs: Rehab 08/15/16 14:54 Consult to Physician [CONS] Routine Comment: Consulting Provider: Consult to Specialist Group: Hospitalist When should Consulting Provider be notified: Now Person Notified: DR DING Date Notified: 08/15/16 Time Notified: 15:51 Discharging clinician: Tacos Gaudarrama MD
--- NOTE | 2016-08-20 09:34 | Hospitalist Progress Note ---
Assessment and Plan (1) Closed fracture of right femur Status: Acute Assessment and plan: Stable postoperative undergoing PT. He is ready for discharge. I await placement.. Current Visit: No (2) Hypertension Status: Chronic Assessment and plan: Well controlled at 138/77 today. Current Visit: No Qualifiers: Hypertension type: essential hypertension Qualified Code(s): I10 - Essential (primary) hypertension (3) Chronic kidney disease Status: Chronic Assessment and plan: Renal function has improved with BUN and creatinine today at 25 and 1.2. This is compatible with RAVEN that is now resolving. Current Visit: Yes Qualifiers: Chronic kidney disease stage: stage 3 (moderate) Qualified Code(s): N18.3 - Chronic kidney disease, stage 3 (moderate) (4) Anemia Status: Acute Assessment and plan: His H/H has decreased mildly postoperative compatible with operative blood loss. No specific treatment at this time. Current Visit: Yes Qualifiers: Anemia type: unspecified type Qualified Code(s): D64.9 - Anemia, unspecified Exam - Constitutional Vitals: Period Temp Pulse Resp BP Sys/Rincon Pulse Ox Last 24 Hr 98.1 F-98.4 F 58-74 18-20 134-163/69-95 93-97 Results - Labs CBC & BMP: 08/19/16 05:41 08/17/16 05:32 Specialty Discharge - Follow Up or Referrals Follow up with: Tacos Guadarrama MD [Physician] - 09/02/16 12:45 pm - Discharge Medications New Acetaminophen Tab [Tylenol Tab] 650 mg PO Q6H PRN #0 tablet PRN Reason: Pain Mild (1-3) Docusate Sodium Cap [Colace Cap] 100 mg PO BID capsule HYDROcodone/ACETAMIN 7.5-325 [[place] 7.5-325] 1 tablet PO Q4H PRN #0 tablet PRN Reason: Pain Moderate (4-7) Aspirin EC Tab 325 mg PO DAILY #30 tablet Continue hydrALAZINE TAB [Apresoline Tab] 50 mg PO TID Atorvastatin [Lipitor] 10 mg PO DAILY Citalopram [CeleXA] 20 mg PO DAILY Baclofen 20 mg PO TID Omeprazole 20 mg DAILY Nifedipine [Nifedipine ER] 90 mg PO DAILY Labetalol Tab [Trandate Tab] 200 mg TID Tolterodine Tartrate [Tolterodine LA] 4 mg PO DAILY Albuterol Sulfate [Proair HFA] 2 puff INH Q4H PRN PRN Reason: Shortness Of Breath/Wheezing Meloxicam [Mobic] 7.5 mg PO DAILY
--- NOTE | 2016-08-20 09:37 | Hospitalist Progress Note ---
Assessment and Plan (1) Closed fracture of right femur Status: Acute Assessment and plan: Stable postoperative undergoing PT. Current Visit: No (2) Hypertension Status: Chronic Assessment and plan: Well controlled at 138/88 today. Current Visit: No Qualifiers: Hypertension type: essential hypertension Qualified Code(s): I10 - Essential (primary) hypertension (3) Chronic kidney disease Status: Chronic Assessment and plan: Renal function has improved with BUN and creatinine today at 25 and 1.2. This is compatible with RAVEN that is now resolving. Current Visit: Yes Qualifiers: Chronic kidney disease stage: stage 3 (moderate) Qualified Code(s): N18.3 - Chronic kidney disease, stage 3 (moderate) (4) Anemia Status: Acute Assessment and plan: His H/H has decreased mildly postoperative compatible with operative blood loss. No specific treatment at this time. Current Visit: Yes Qualifiers: Anemia type: unspecified type Qualified Code(s): D64.9 - Anemia, unspecified Exam - Constitutional Vitals: Period Temp Pulse Resp BP Sys/Rincon Pulse Ox Last 24 Hr 98.1 F-98.4 F 58-74 18-20 134-163/69-95 93-97 General appearance: no acute distress - Head Head exam: Present: normal inspection - Neck Neck exam: Present: normal inspection - Respiratory Respiratory exam: Present: clear to auscultation bilaterally - Cardiovascular Cardiovascular exam: Present: regular rate and rhythm - GI/Abdominal GI/Abdominal exam: Present: normal bowel sounds, soft - Extremities Exam Extremities exam: Present: normal inspection - Skin Skin exam: Present: normal color Results - Labs CBC & BMP: 08/19/16 05:41 08/17/16 05:32 Specialty Discharge - Follow Up or Referrals Follow up with: Tacos Guadarrama MD [Physician] - 09/02/16 12:45 pm - Discharge Medications New Acetaminophen Tab [Tylenol Tab] 650 mg PO Q6H PRN #0 tablet PRN Reason: Pain Mild (1-3) Docusate Sodium Cap [Colace Cap] 100 mg PO BID capsule HYDROcodone/ACETAMIN 7.5-325 [[place] 7.5-325] 1 tablet PO Q4H PRN #0 tablet PRN Reason: Pain Moderate (4-7) Aspirin EC Tab 325 mg PO DAILY #30 tablet Continue hydrALAZINE TAB [Apresoline Tab] 50 mg PO TID Atorvastatin [Lipitor] 10 mg PO DAILY Citalopram [CeleXA] 20 mg PO DAILY Baclofen 20 mg PO TID Omeprazole 20 mg DAILY Nifedipine [Nifedipine ER] 90 mg PO DAILY Labetalol Tab [Trandate Tab] 200 mg TID Tolterodine Tartrate [Tolterodine LA] 4 mg PO DAILY Albuterol Sulfate [Proair HFA] 2 puff INH Q4H PRN PRN Reason: Shortness Of Breath/Wheezing Meloxicam [Mobic] 7.5 mg PO DAILY
[2016-08-20] MEDS: CITALOPRAM 20 MG TABLET PO SCH (09:45)
[2016-08-20] MEDS: BACLOFEN 20 MG TABLET PO SCH (09:45)
[2016-08-20] MEDS: DOCUSATE SODIUM 100 MG CAPSULE PO SCH (09:45)
[2016-08-20] MEDS: LABETALOL 200 MG TABLET PO SCH (09:46)
[2016-08-20] MEDS: ATORVASTATIN 10 MG TABLET PO SCH (09:46)
[2016-08-20] MEDS: PANTOPRAZOLE 40 MG TABLET PO SCH (09:46)
--- NOTE | 2016-08-20 09:52 | Case Mgmt Physician Query Form ---
TB Signs and Symptoms Screening ([place]) INSTRUCTIONS: To be completed annually on residents/staff with a significant Tuberculin Skin Test (TST) upon admission/hire or a prior significant TST. To be completed on all staff at hire. Please respond to each listed symptom with an (X) in either the "YES" or "NO" box. Do you currently have any of the following symptoms: YES NO ( ) ( ) A cough If yes, is it: ( ) Productive ( ) Non- productive ( ) ( ) Hemoptysis (spitting up blood) ( ) ( ) Chest pains ( ) ( ) Weight Loss ( ) ( ) Fever ( ) ( ) Night Sweats ( ) ( ) Weakness ( ) ( ) Loss of Appetite ( ) ( ) Difficulty Breathing If you answered YES" to any of the above questions, how long have symptoms been present? Comments: If you have any questions, please contact me. Thank you, Luz Marina Silverio RN, Office : [phone] Email : [email or web address]
[2016-08-20] MEDS ORDERED: TUBERCULIN SKIN TEST 0.1 ML SYRINGE INTRADERM ONE (11:00)
[2016-08-20 14:59] VITALS: BP 122/58
== END 2016-08-20 13:30 | disposition swing bed, planned readmission (89) | DRG 481 ==
LOC: EDBD → EDUNIT# → N.ED 13:45 → N.EDINP 14:53 → N.3E 15:16
PROVIDERS: ADMIT Orthopaedic Surgery; ATTEND Orthopaedic Surgery

== ENCOUNTER 2021-03-31 18:20 | Inpatient (IN) ==
[2021-03-31 22:01] LABS: PT Patient Result 11.6 SECS (10.5-12.0); Partial Thromboplastin Time 30.2 SECS (23.9-33.8)
[2021-03-31 22:14] LABS: Bilirubin,Total 0.6 MG/DL (0.20-1.00); Calcium 8.4 MG/DL (8.5-10.1); Osmolality,Calculated 295.7 MOS/KG (273-304); Potassium 3.8 MMOL/L (3.5-5.1); Total Protein 6.3 G/DL (6.4-8.2)
[2021-03-31] MEDS ORDERED: GLUCAGON 1 MG VIAL IM PRN (22:16)
[2021-03-31] MEDS ORDERED: DEXTROSE 50% 25 GM/50 ML VIAL IV PRN (22:16)
[2021-03-31 22:21] LABS: Basophils # 0.1 10*3/uL (0.0-0.2); Basophils % 0.4 % (0.0-0.8); Eosinophils # 0.3 10*3/uL (0.0-0.87); Hematocrit 37.1 VOL% (42.0-52.0); Hemoglobin 12.5 GM/DL (14.0-18.0); Immature Granulocytes % 0.5 %; Immature Granulocytes Absolute 0.09 #; Lymphocytes # 1.7 10*3/uL (1.4-4.0); Lymphocytes % 10.5 % (21.2-54.2); Mean Corpuscular HGB Conc 33.7 GM/DL (32-36); Mean Corpuscular Volume 88.8 FL (87-102); Mean Platelet Volume 9.7 FL (9.6-12.0); Monocytes % 4.5 % (1.7-12.7); Neutrophils % 82.1 % (38.7-73.9); Platelet Count 217 T/CUMM (130-400); Red Blood Count 4.18 MC/CUMM (3.8-5.5); Red Cell Distribution Width 13.3 % (9.3-17.3); White Blood Count 16.4 T/CUMM (4-12)
[2021-03-31] MEDS ORDERED: MAGNESIUM SULF RIDER 2 GM/50 ML PREMIX IV ONE (23:50)
[2021-04-01] MEDS: LABETALOL 200 MG TABLET PO SCH ×3 (00:22→20:34)
[2021-04-01] MEDS: cefTRIAXone 1,000 MG in SODIUM CHLORIDE 0.9% 100 ML IV SCH (00:22)
[2021-04-01] MEDS: DOXYCYCLINE HYCLATE INJ 100 MG in SODIUM CHLORIDE 0.9% 100 ML IV SCH ×3 (02:05→13:18)
[2021-04-01] MEDS ORDERED: MIDAZOLAM 2 MG/2 ML VIAL ONE (06:50)
[2021-04-01] MEDS ORDERED: ONDANSETRON 4 MG/2 ML VIAL ONE (06:50)
[2021-04-01] MEDS ORDERED: SEVOFLURANE 1 UNIT/15 MINUTE INH ONE (06:50)
[2021-04-01] MEDS ORDERED: ROCURONIUM 50 MG/5 ML VIAL IV ONE (06:50)
[2021-04-01] MEDS ORDERED: propofoL 200 MG/20 ML VIAL IV ONE (06:50)
[2021-04-01] MEDS ORDERED: LIDOCAINE 2% 5 ML VIAL ONE (06:50)
[2021-04-01] MEDS ORDERED: fentaNYL 100 MCG/2 ML VIAL ONE (06:51)
[2021-04-01 07:17] LABS: Calcium 8.5 MG/DL (8.5-10.1); Osmolality,Calculated 291.8 MOS/KG (273-304); Potassium 3.5 MMOL/L (3.5-5.1)
[2021-04-01] MEDS ORDERED: ceFAZolin 2,000 MG/50 ML DUPLEX IV ONE (07:24)
[2021-04-01] MEDS: ALBUTEROL 2.5 MG/3 ML NEB RESP TX SCH ×5 (07:25→20:05)
[2021-04-01] MEDS ORDERED: KETAMINE 500 MG/10 ML VIAL ONE (07:52)
[2021-04-01] MEDS ORDERED: BUPIVACAINE SPINAL 0.75% 2 ML AMP SPINAL ONE (07:54)
[2021-04-01] MEDS ORDERED: PANTOPRAZOLE 40 MG TABLET PO SCH (09:00)
[2021-04-01] MEDS ORDERED: HEPARIN 5,000 UNIT/1 ML VIAL SUBCUT SCH (09:00)
[2021-04-01] MEDS ORDERED: ALBUTEROL/IPRATROPIUM 3 ML NEB RESP TX ONE (09:09)
[2021-04-01] MEDS: DOCUSATE SODIUM 100 MG CAPSULE PO SCH ×2 (09:23→20:33)
[2021-04-01] MEDS: TAMSULOSIN 0.4 MG CAPSULE PO SCH (09:24)
[2021-04-01] MEDS: ATORVASTATIN 10 MG TABLET PO SCH (09:24)
[2021-04-01] MEDS ORDERED: LACTATED RINGERS 1,000 ML IV SCH (09:30)
[2021-04-01] MEDS ORDERED: PHENYLEPHRINE 1 MG/10 ML SYRINGE IV ONE (09:56)
[2021-04-01] MEDS ORDERED: MAGNESIUM HYDROXIDE SUSP 30 ML UDCUP PO PRN (10:21)
[2021-04-01] MEDS ORDERED: BISACODYL 10 MG SUPP RECTAL PRN (10:23)
[2021-04-01] MEDS ORDERED: LACTULOSE 20 GM/30 ML UDCUP PO PRN (10:23)
[2021-04-01] MEDS ORDERED: diphenhydrAMINE CAP 25 MG CAPSULE PO PRN (10:23)
[2021-04-01] MEDS ORDERED: ONDANSETRON 4 MG/2 ML VIAL IV PRN (10:23)
[2021-04-01] MEDS ORDERED: MORPHINE 2 MG/1 ML SYRINGE IV PRN ×2 (10:31→10:44)
[2021-04-01] MEDS ORDERED: ROPIVACAINE 0.5% 30 ML VIAL ONE (10:37)
[2021-04-01] MEDS: ACETAMINOPHEN 325 MG TABLET PO PRN (23:24)
[2021-04-02] MEDS: cefTRIAXone 1,000 MG in SODIUM CHLORIDE 0.9% 100 ML IV SCH (00:20)
[2021-04-02] MEDS: DOXYCYCLINE HYCLATE INJ 100 MG in SODIUM CHLORIDE 0.9% 100 ML IV SCH ×2 (00:45→13:38)
[2021-04-02] MEDS: ALBUTEROL 2.5 MG/3 ML NEB RESP TX SCH ×4 (00:55→20:03)
[2021-04-02] MEDS: FONDAPARINUX 2.5 MG/0.5 ML SYRINGE SUBCUT SCH (05:22)
[2021-04-02 05:47] LABS: Basophils # 0.1 10*3/uL (0.0-0.2); Basophils % 0.5 % (0.0-0.8); Eosinophils # 0.6 10*3/uL (0.0-0.87); Hematocrit 31.9 VOL% (42.0-52.0); Hemoglobin 10.6 GM/DL (14.0-18.0); Immature Granulocytes % 0.5 %; Immature Granulocytes Absolute 0.06 #; Lymphocytes # 1.8 10*3/uL (1.4-4.0); Lymphocytes % 16.2 % (21.2-54.2); Mean Corpuscular HGB Conc 33.2 GM/DL (32-36); Mean Corpuscular Volume 90.6 FL (87-102); Mean Platelet Volume 10.4 FL (9.6-12.0); Monocytes % 7.8 % (1.7-12.7); Platelet Count 188 T/CUMM (130-400); Red Blood Count 3.52 MC/CUMM (3.8-5.5); Red Cell Distribution Width 13.4 % (9.3-17.3); White Blood Count 11.1 T/CUMM (4-12)
[2021-04-02 06:12] LABS: Calcium 8.5 MG/DL (8.5-10.1); Osmolality,Calculated 284.4 MOS/KG (273-304); Potassium 3.5 MMOL/L (3.5-5.1)
[2021-04-02] MEDS: LABETALOL 200 MG TABLET PO SCH ×2 (09:36→21:01)
[2021-04-02] MEDS: ATORVASTATIN 10 MG TABLET PO SCH (09:36)
[2021-04-02] MEDS: ERGOCALCIFEROL 50,000 UNIT CAPSULE PO SCH (09:37)
[2021-04-02] MEDS: DOCUSATE SODIUM 100 MG CAPSULE PO SCH ×2 (09:37→21:01)
[2021-04-02] MEDS: PANTOPRAZOLE 40 MG TABLET PO SCH (09:37)
[2021-04-02] MEDS: TAMSULOSIN 0.4 MG CAPSULE PO SCH (09:37)
[2021-04-02] MEDS: TUBERCULIN SKIN TEST 0.1 ML SYRINGE INTRADERM ONE ×2 (11:15→11:20)
[2021-04-02] MEDS ORDERED: TUBERCULIN SKIN TEST 0.1 ML SYRINGE INTRADERM ONE (11:30)
[2021-04-02] MEDS ORDERED: POTASSIUM PHOSPHATE IV ONE (15:30)
[2021-04-02] MEDS ORDERED: SODIUM CHLORIDE 0.9% IV ONE (15:30)
[2021-04-02] MEDS ORDERED: hydrALAZINE 20 MG/1 ML VIAL IV PRN (16:24)
[2021-04-03] MEDS: cefTRIAXone 1,000 MG in SODIUM CHLORIDE 0.9% 100 ML IV SCH (00:21)
[2021-04-03] MEDS: DOXYCYCLINE HYCLATE INJ 100 MG in SODIUM CHLORIDE 0.9% 100 ML IV SCH ×2 (01:03→13:51)
[2021-04-03] MEDS: ALBUTEROL 2.5 MG/3 ML NEB RESP TX SCH ×4 (01:30→19:50)
[2021-04-03 05:42] LABS: Basophils % 0.3 % (0.0-0.8); Eosinophils # 0.8 10*3/uL (0.0-0.87); Eosinophils % 7.3 % (0.00-10.9); Hematocrit 33.8 VOL% (42.0-52.0); Hemoglobin 11.3 GM/DL (14.0-18.0); Immature Granulocytes % 0.7 %; Immature Granulocytes Absolute 0.07 #; Lymphocytes # 1.5 10*3/uL (1.4-4.0); Lymphocytes % 13.5 % (21.2-54.2); Mean Corpuscular HGB Conc 33.4 GM/DL (32-36); Mean Corpuscular Volume 91.1 FL (87-102); Mean Platelet Volume 10.3 FL (9.6-12.0); Monocytes % 7.7 % (1.7-12.7); Neutrophils % 70.5 % (38.7-73.9); Platelet Count 185 T/CUMM (130-400); Red Blood Count 3.71 MC/CUMM (3.8-5.5); Red Cell Distribution Width 13.3 % (9.3-17.3); White Blood Count 10.7 T/CUMM (4-12)
[2021-04-03 06:03] LABS: Calcium 8.8 MG/DL (8.5-10.1); Potassium 3.7 MMOL/L (3.5-5.1)
[2021-04-03] MEDS: FONDAPARINUX 2.5 MG/0.5 ML SYRINGE SUBCUT SCH (06:04)
[2021-04-03] MEDS: LABETALOL 200 MG TABLET PO SCH ×2 (09:02→21:10)
[2021-04-03] MEDS: DOCUSATE SODIUM 100 MG CAPSULE PO SCH ×2 (09:02→21:11)
[2021-04-03] MEDS: ATORVASTATIN 10 MG TABLET PO SCH (09:02)
[2021-04-03] MEDS: TAMSULOSIN 0.4 MG CAPSULE PO SCH (09:02)
[2021-04-03] MEDS: PANTOPRAZOLE 40 MG TABLET PO SCH (09:02)
[2021-04-03] MEDS: methylPREDNISolone SOD SUC 40 MG/1 ML VIAL IV SCH ×2 (11:05→17:26)
[2021-04-03] MEDS ORDERED: FUROSEMIDE 40 MG/4 ML VIAL IV ONE (12:03)
[2021-04-03 20:44] LABS: ABG Base Excess 4.9 MMOL/L (-2.5-2.5); ABG HCO3 28.8 MMOL/L (20-26); ABG Oxygen Saturation 97.6 % (95-100); ABG PH 7.475 (7.35-7.45); ABG PO2 88.9 MM HG (80-95); ABG TCO2 25.4 MMOL/L (23-27); Allen Test Positive; Pt O2 Delivery Device Simple Mask
[2021-04-03] MEDS ORDERED: LORazepam 2 MG/1 ML VIAL IV ONE (23:38)
[2021-04-04] MEDS: cefTRIAXone 1,000 MG in SODIUM CHLORIDE 0.9% 100 ML IV SCH ×2 (00:11→23:46)
[2021-04-04] MEDS: ALBUTEROL 2.5 MG/3 ML NEB RESP TX SCH ×2 (00:15→09:50)
[2021-04-04] MEDS: DOXYCYCLINE HYCLATE INJ 100 MG in SODIUM CHLORIDE 0.9% 100 ML IV SCH ×2 (01:54→15:56)
[2021-04-04] MEDS: methylPREDNISolone SOD SUC 40 MG/1 ML VIAL IV SCH (01:54)
[2021-04-04 05:13] LABS: Basophils % 0.1 % (0.0-0.8); Hematocrit 33.2 VOL% (42.0-52.0); Hemoglobin 10.9 GM/DL (14.0-18.0); Immature Granulocytes % 0.7 %; Immature Granulocytes Absolute 0.09 #; Lymphocytes # 0.7 10*3/uL (1.4-4.0); Lymphocytes % 5.6 % (21.2-54.2); Mean Corpuscular HGB Conc 32.8 GM/DL (32-36); Mean Corpuscular Volume 91.5 FL (87-102); Neutrophils % 90.6 % (38.7-73.9); Platelet Count 225 T/CUMM (130-400); Red Blood Count 3.63 MC/CUMM (3.8-5.5); Red Cell Distribution Width 13.2 % (9.3-17.3); White Blood Count 12.2 T/CUMM (4-12)
[2021-04-04 05:57] LABS: Lymphocytes 5 % (20-55); Microcytosis 1+; Segmented Neutrophils 92 % (50-85); Total Cells Counted 100
[2021-04-04 05:58] LABS: Hypochromasia 1+; Ovalocytes Slight; Platelet Estimate Normal
[2021-04-04] MEDS: FONDAPARINUX 2.5 MG/0.5 ML SYRINGE SUBCUT SCH (07:09)
[2021-04-04] MEDS ORDERED: ZIPRASIDONE 20 MG/1 ML VIAL IM ONE (08:46)
[2021-04-04] MEDS ORDERED: ALBUTEROL 2.5 MG/3 ML NEB RESP TX PRN (09:01)
[2021-04-04] MEDS: TAMSULOSIN 0.4 MG CAPSULE PO SCH (11:16)
[2021-04-04] MEDS: DOCUSATE SODIUM 100 MG CAPSULE PO SCH ×2 (11:16→20:16)
[2021-04-04] MEDS: ATORVASTATIN 10 MG TABLET PO SCH (11:16)
[2021-04-04] MEDS: PANTOPRAZOLE 40 MG TABLET PO SCH (11:16)
[2021-04-04] MEDS: LABETALOL 200 MG TABLET PO SCH ×2 (11:17→20:16)
[2021-04-04] MEDS ORDERED: LACTULOSE 20 GM/30 ML UDCUP PO ONE (12:16)
[2021-04-04] MEDS: ZIPRASIDONE 20 MG/1 ML VIAL IM PRN (15:38)
[2021-04-04] MEDS: BACLOFEN 10 MG TABLET PO SCH ×2 (15:40→20:16)
[2021-04-04] MEDS: MELATONIN 3 MG TABLET PO PRN (22:30)
[2021-04-05] MEDS: DOXYCYCLINE HYCLATE INJ 100 MG in SODIUM CHLORIDE 0.9% 100 ML IV SCH ×2 (00:21→13:48)
[2021-04-05] MEDS: FONDAPARINUX 2.5 MG/0.5 ML SYRINGE SUBCUT SCH (05:10)
[2021-04-05] MEDS: PANTOPRAZOLE 40 MG TABLET PO SCH (10:20)
[2021-04-05] MEDS: TAMSULOSIN 0.4 MG CAPSULE PO SCH (10:20)
[2021-04-05] MEDS: ATORVASTATIN 10 MG TABLET PO SCH (10:20)
[2021-04-05] MEDS: DOCUSATE SODIUM 100 MG CAPSULE PO SCH ×2 (10:20→20:43)
[2021-04-05] MEDS: BACLOFEN 10 MG TABLET PO SCH ×3 (10:20→20:42)
[2021-04-05] MEDS: LABETALOL 200 MG TABLET PO SCH ×2 (10:21→20:42)
[2021-04-05] MEDS: MELATONIN 3 MG TABLET PO PRN (20:42)
[2021-04-06] MEDS: cefTRIAXone 1,000 MG in SODIUM CHLORIDE 0.9% 100 ML IV SCH ×2 (00:56→15:14)
[2021-04-06] MEDS: DOXYCYCLINE HYCLATE INJ 100 MG in SODIUM CHLORIDE 0.9% 100 ML IV SCH ×2 (05:03→14:05)
[2021-04-06] MEDS: FONDAPARINUX 2.5 MG/0.5 ML SYRINGE SUBCUT SCH (05:26)
[2021-04-06 06:01] LABS: Basophils % 0.3 % (0.0-0.8); Eosinophils # 0.3 10*3/uL (0.0-0.87); Eosinophils % 2.2 % (0.00-10.9); Hematocrit 35.7 VOL% (42.0-52.0); Hemoglobin 12.1 GM/DL (14.0-18.0); Immature Granulocytes % 0.4 %; Immature Granulocytes Absolute 0.05 #; Lymphocytes # 1.5 10*3/uL (1.4-4.0); Mean Corpuscular HGB Conc 33.9 GM/DL (32-36); Mean Corpuscular Volume 89.7 FL (87-102); Mean Platelet Volume 9.3 FL (9.6-12.0); Monocytes % 6.1 % (1.7-12.7); Platelet Count 245 T/CUMM (130-400); Red Blood Count 3.98 MC/CUMM (3.8-5.5); Red Cell Distribution Width 13.3 % (9.3-17.3); White Blood Count 11.4 T/CUMM (4-12)
[2021-04-06 06:37] LABS: Calcium 9.4 MG/DL (8.5-10.1); Osmolality,Calculated 297.6 MOS/KG (273-304); Potassium 3.9 MMOL/L (3.5-5.1)
[2021-04-06] MEDS: ZIPRASIDONE 20 MG/1 ML VIAL IM PRN (08:07)
[2021-04-06] MEDS: LABETALOL 200 MG TABLET PO SCH ×2 (10:51→21:44)
[2021-04-06] MEDS: PANTOPRAZOLE 40 MG TABLET PO SCH (10:52)
[2021-04-06] MEDS: DOCUSATE SODIUM 100 MG CAPSULE PO SCH ×2 (10:54→21:44)
[2021-04-06] MEDS: TAMSULOSIN 0.4 MG CAPSULE PO SCH (10:55)
[2021-04-06] MEDS: ATORVASTATIN 10 MG TABLET PO SCH (10:55)
[2021-04-06] MEDS: BACLOFEN 10 MG TABLET PO SCH ×3 (10:55→21:44)
[2021-04-06] MEDS: MELATONIN 3 MG TABLET PO PRN (21:44)
[2021-04-06] MEDS: ACETAMINOPHEN 325 MG TABLET PO PRN (21:44)
[2021-04-07] MEDS: DOXYCYCLINE HYCLATE INJ 100 MG in SODIUM CHLORIDE 0.9% 100 ML IV SCH ×2 (01:04→15:01)
[2021-04-07] MEDS: FONDAPARINUX 2.5 MG/0.5 ML SYRINGE SUBCUT SCH (05:26)
[2021-04-07 05:51] LABS: Basophils # 0.1 10*3/uL (0.0-0.2); Basophils % 0.5 % (0.0-0.8); Eosinophils # 0.4 10*3/uL (0.0-0.87); Eosinophils % 3.5 % (0.00-10.9); Hemoglobin 11.1 GM/DL (14.0-18.0); Immature Granulocytes % 0.7 %; Immature Granulocytes Absolute 0.09 #; Lymphocytes # 2.1 10*3/uL (1.4-4.0); Lymphocytes % 16.7 % (21.2-54.2); Mean Corpuscular HGB Conc 32.6 GM/DL (32-36); Mean Corpuscular Volume 90.2 FL (87-102); Mean Platelet Volume 9.5 FL (9.6-12.0); Monocytes % 6.2 % (1.7-12.7); Neutrophils % 72.4 % (38.7-73.9); Platelet Count 261 T/CUMM (130-400); Red Blood Count 3.77 MC/CUMM (3.8-5.5); Red Cell Distribution Width 13.4 % (9.3-17.3); White Blood Count 12.3 T/CUMM (4-12)
[2021-04-07 06:15] LABS: Osmolality,Calculated 301.1 MOS/KG (273-304); Potassium 3.5 MMOL/L (3.5-5.1)
[2021-04-07] MEDS: PANTOPRAZOLE 40 MG TABLET PO SCH (09:12)
[2021-04-07] MEDS: LABETALOL 200 MG TABLET PO SCH ×2 (09:12→21:50)
[2021-04-07] MEDS: TAMSULOSIN 0.4 MG CAPSULE PO SCH (09:12)
[2021-04-07] MEDS: DOCUSATE SODIUM 100 MG CAPSULE PO SCH ×2 (09:13→21:50)
[2021-04-07] MEDS: ATORVASTATIN 10 MG TABLET PO SCH (09:13)
[2021-04-07] MEDS: BACLOFEN 10 MG TABLET PO SCH ×3 (09:13→21:50)
[2021-04-07] MEDS: ASPIRIN EC 325 MG TABLET PO SCH (16:58)
[2021-04-07] MEDS: cefTRIAXone 1,000 MG in SODIUM CHLORIDE 0.9% 100 ML IV SCH (16:58)
[2021-04-07] MEDS: THIAMINE 100 MG TABLET PO SCH (16:59)
[2021-04-07] MEDS ORDERED: LORazepam 2 MG/1 ML VIAL IV ONE (21:00)
[2021-04-07] MEDS ORDERED: HALOPERIDOL 5 MG/ML AMP IM ONE (21:00)
[2021-04-08] MEDS: DOXYCYCLINE HYCLATE INJ 100 MG in SODIUM CHLORIDE 0.9% 100 ML IV SCH (00:35)
[2021-04-08 05:12] LABS: Basophils # 0.1 10*3/uL (0.0-0.2); Basophils % 0.5 % (0.0-0.8); Eosinophils # 0.5 10*3/uL (0.0-0.87); Hematocrit 32.6 VOL% (42.0-52.0); Immature Granulocytes % 0.7 %; Immature Granulocytes Absolute 0.07 #; Lymphocytes # 2.1 10*3/uL (1.4-4.0); Lymphocytes % 20.1 % (21.2-54.2); Mean Corpuscular HGB Conc 33.7 GM/DL (32-36); Mean Corpuscular Volume 89.3 FL (87-102); Mean Platelet Volume 8.9 FL (9.6-12.0); Monocytes % 6.3 % (1.7-12.7); Neutrophils % 67.4 % (38.7-73.9); Platelet Count 253 T/CUMM (130-400); Red Blood Count 3.65 MC/CUMM (3.8-5.5); Red Cell Distribution Width 13.5 % (9.3-17.3); White Blood Count 10.4 T/CUMM (4-12)
[2021-04-08 05:22] LABS: Calcium 8.4 MG/DL (8.5-10.1); Osmolality,Calculated 299.1 MOS/KG (273-304); Potassium 3.3 MMOL/L (3.5-5.1)
[2021-04-08 05:32] LABS: Ferritin 484.2 ng/mL (26-388); Thyroid Stimulating Hormone 1.58 uIU/ml (0.358-3.74)
[2021-04-08 06:04] LABS: Folate 10.28 NG/ML (5.38-24.0); Vitamin B12 321 PG/ML (211-911)
[2021-04-08] MEDS: FONDAPARINUX 2.5 MG/0.5 ML SYRINGE SUBCUT SCH (06:18)
[2021-04-08 07:14] LABS: Sedimentation Rate-Westergren 40 MM/HR (0-20)
[2021-04-08] MEDS: DOCUSATE SODIUM 100 MG CAPSULE PO SCH ×2 (09:10→22:18)
[2021-04-08] MEDS: LABETALOL 200 MG TABLET PO SCH ×2 (09:10→22:17)
[2021-04-08] MEDS: BACLOFEN 10 MG TABLET PO SCH ×3 (09:10→22:18)
[2021-04-08] MEDS: TAMSULOSIN 0.4 MG CAPSULE PO SCH (09:10)
[2021-04-08] MEDS: PANTOPRAZOLE 40 MG TABLET PO SCH (09:10)
[2021-04-08] MEDS: ASPIRIN EC 325 MG TABLET PO SCH (09:10)
[2021-04-08] MEDS: ATORVASTATIN 10 MG TABLET PO SCH (09:10)
[2021-04-08] MEDS: THIAMINE 100 MG TABLET PO SCH (09:10)
[2021-04-08 10:29] LABS: Hemoglobin A1 (Alkaline) 97.8 % (96.5-98.5); Hemoglobin A2 (Alkaline) 2.2 % (1.5-3.5)
[2021-04-08 11:25] LABS: Bilirubin,Urine Negative (Negative); Blood, Urine Negative (Negative); Glucose,Urine (UA) Negative (Negative); Ketones,Urine Negative (Negative); Mucus,Urine Occasional /LPF (Occasional); Nitrite,Urine Negative (Negative); Protein,Urine 30 MG/DL; RBC,Urine 1 /HPF (0-4); Urine Appearance CLEAR (Clear); Urine Color Yellow (Yellow); Urine Specific Gravity 1.017 (1.001-1.035); Urine Urobilinogen < 2.0 EU/DL (0.2-1.0)
[2021-04-08] MEDS ORDERED: DEXTROSE 5% 1,000 ML IV SCH (17:00)
[2021-04-08] MEDS: QUEtiapine 25 MG TABLET PO SCH (22:18)
[2021-04-09] MEDS: FONDAPARINUX 2.5 MG/0.5 ML SYRINGE SUBCUT SCH (05:08)
[2021-04-09] MEDS: BACLOFEN 10 MG TABLET PO SCH (09:16)
[2021-04-09] MEDS: DOCUSATE SODIUM 100 MG CAPSULE PO SCH (09:16)
[2021-04-09] MEDS: ATORVASTATIN 10 MG TABLET PO SCH (09:16)
[2021-04-09] MEDS: ERGOCALCIFEROL 50,000 UNIT CAPSULE PO SCH (09:17)
[2021-04-09] MEDS: QUEtiapine 25 MG TABLET PO SCH (09:17)
[2021-04-09] MEDS: LABETALOL 200 MG TABLET PO SCH (09:17)
[2021-04-09] MEDS: ASPIRIN EC 325 MG TABLET PO SCH (09:17)
[2021-04-09] MEDS: PANTOPRAZOLE 40 MG TABLET PO SCH (09:17)
[2021-04-09] MEDS: TAMSULOSIN 0.4 MG CAPSULE PO SCH (09:17)
[2021-04-09] MEDS: THIAMINE 100 MG TABLET PO SCH (09:17)
[2021-04-09 12:15] VITALS: BP 137/69
== END 2021-04-09 15:48 | disposition swing bed (61) | DRG 480 ==
LOC: EDUNIT# → EDBD → N.ED 18:20 → N.EDINP 22:16 → SUATTDRO 22:16 → N.3E 23:15
PROVIDERS: ADMIT Internal Medicine; ATTEND Internal Medicine

== ENCOUNTER 2022-09-10 08:17 | Inpatient (IN) ==
[2022-09-10] MEDS ORDERED: SODIUM CHLORIDE 0.9% 1,000 ML IV STA ×3 (08:22→10:19)
[2022-09-10] MEDS ORDERED: DEXTROSE 50% 25 GM/50 ML SYRINGE IV ONE ×2 (08:29→14:30)
[2022-09-10 09:07] LABS: Arterial Base Excess iSTAT 4 MMOL/L (-2.5-2.5); Arterial Bicarbonate iSTAT 31.5 MMOL/L (20-26); Arterial O2 Saturation iSTAT 91 % (95-100); Arterial PCO2 iSTAT 61 MM HG (35-48); Arterial PO2 iSTAT 69 MM HG (80-95); Arterial Total CO2 iSTAT 33 MMO/L (23-27); Arterial pH iSTAT 7.324 (7.35-7.45)
[2022-09-10] MEDS ORDERED: DEXTROSE 50% 25 GM/50 ML VIAL IV ONE (09:07)
[2022-09-10 09:10] LABS: Basophils % 0.5 % (0.0-0.8); Eosinophils # 0.3 10*3/uL (0.0-0.87); Eosinophils % 3.6 % (0.00-10.9); Hematocrit 36.9 VOL% (42.0-52.0); Hemoglobin 12.2 GM/DL (14.0-18.0); Immature Granulocytes % 0.5 %; Immature Granulocytes Absolute 0.04 #; Lymphocytes % 12.7 % (21.2-54.2); Mean Corpuscular HGB Conc 33.1 GM/DL (32-36); Mean Corpuscular Volume 91.1 FL (87-102); Mean Platelet Volume 9.1 FL (9.6-12.0); Monocytes # 0.3 10*3/uL (0.11-0.8); Monocytes % 3.6 % (1.7-12.7); Neutrophils % 79.1 % (38.7-73.9); Platelet Count 189 T/CUMM (130-400); Red Blood Count 4.05 MC/CUMM (3.8-5.5); Red Cell Distribution Width 13.5 % (9.3-17.3); White Blood Count 8.1 T/CUMM (4-12)
[2022-09-10] MEDS ORDERED: ETOMIDATE 20 MG/10 ML VIAL IV ONE (09:25)
[2022-09-10] MEDS ORDERED: ROCURONIUM 100 MG/10 ML VIAL IV ONE (09:26)
[2022-09-10 09:32] LABS: Alanine Aminotransferase 20 U/L (16-61); Albumin 3.5 G/DL (3.4-5.0); Alkaline Phosphatase 90 U/L (45-117); Aspartate Amino Transferase 19 U/L (0-37); Blood Urea Nitrogen 27 MG/DL (7-18); Calcium 8.4 MG/DL (8.5-10.1); Carbon Dioxide 28 MMOL/L (21-32); Chloride 112 MMOL/L (98-107); Glucose 97 MG/DL (74-106); Osmolality,Calculated 294.6 MOS/KG (273-304); Potassium 3.9 MMOL/L (3.5-5.1); Sodium 146 MMOL/L (136-145); Total Protein 6.4 G/DL (6.4-8.2)
[2022-09-10 09:49] LABS: PT Patient Result 10.8 SECS (10.1-12.1)
[2022-09-10 10:00] LABS: Hyaline Casts,Urine 1 /LPF (0-3); Mucus,Urine Occasional /LPF (Occasional); RBC,Urine <1 /HPF (0-4)
[2022-09-10 10:01] LABS: Barbiturates Screen,Urine Negative (Negative); Benzodiazepines Screen,Urine Positive (Negative); Bilirubin,Urine Negative (Negative); Blood, Urine Trace mg/dL (Negative); Cannabinoid Screen,Urine Negative (Negative); Glucose,Urine (UA) 100 mg/dL (Negative); Ketones,Urine Negative (Negative); Nitrite,Urine Negative (Negative); Opiate Screen,Urine Negative (Negative); Phencyclidine Screen,Urine Negative (Negative); Protein,Urine 100 mg/dL (Negative); Urine Appearance Clear (Clear); Urine Color Light Yellow (Yellow); Urine Urobilinogen 0.2 eU/dL (<2.0)
[2022-09-10] MEDS ORDERED: niCARdipine INJ 25 MG in SODIUM CHLORIDE 0.9% 240 ML IV STA (10:20)
[2022-09-10] MEDS ORDERED: ROCURONIUM 100 MG/10 ML VIAL IV STA (10:26)
[2022-09-10] MEDS ORDERED: levETIRAcetam 500 MG/5 ML VIAL IV STA (10:43)
[2022-09-10] MEDS ORDERED: PIPERACILLIN/TAZOBACTAM 3,375 MG in SODIUM CHLORIDE 0.9% 100 ML IV STA (10:44)
[2022-09-10] MEDS ORDERED: LORazepam 2 MG/1 ML VIAL IV STA (11:31)
[2022-09-10] MEDS ORDERED: ALBUTEROL 2.5 MG/3 ML NEB RESP TX PRN (11:38)
[2022-09-10] MEDS ORDERED: ONDANSETRON 4 MG/2 ML VIAL IV PRN (11:39)
[2022-09-10] MEDS ORDERED: MORPHINE 2 MG/1 ML SYRINGE IV PRN (11:39)
[2022-09-10] MEDS ORDERED: LACTULOSE 20 GM/30 ML UDCUP PO PRN (11:41)
[2022-09-10] MEDS ORDERED: ETOMIDATE 20 MG/10 ML VIAL IV STA (11:47)
[2022-09-10] MEDS ORDERED: HEPARIN DRIP 25,000 UNITS/500 ML PREMIX IV SCH (12:00)
[2022-09-10 14:02] LABS: Arterial Base Excess iSTAT 3 MMOL/L (-2.5-2.5); Arterial Bicarbonate iSTAT 28.4 MMOL/L (20-26); Arterial O2 Saturation iSTAT 99 % (95-100); Arterial PCO2 iSTAT 45 MM HG (35-48); Arterial PO2 iSTAT 140 MM HG (80-95); Arterial Total CO2 iSTAT 30 MMO/L (23-27); Arterial pH iSTAT 7.412 (7.35-7.45)
[2022-09-10 14:24] LABS: Calcium 7.9 MG/DL (8.5-10.1); Osmolality,Calculated 292.6 MOS/KG (273-304); Potassium 3.8 MMOL/L (3.5-5.1)
[2022-09-10] MEDS ORDERED: MIDAZOLAM 10 MG/2 ML VIAL ONE (14:42)
[2022-09-10] MEDS ORDERED: MIDAZOLAM 2 MG/2 ML VIAL IV ONE (14:50)
[2022-09-10] MEDS ORDERED: MAGNESIUM SULF RIDER 4 GM/100 ML PREMIX IV PRN (14:55)
[2022-09-10] MEDS ORDERED: hydrALAZINE 20 MG/1 ML VIAL ONE (15:30)
[2022-09-10] MEDS ORDERED: hydrALAZINE 20 MG/1 ML VIAL IV PRN (15:30)
[2022-09-10] MEDS ORDERED: NIFEdipine 10 MG CAPSULE PO SCH (16:00)
[2022-09-10] MEDS: HEPARIN DRIP 25,000 UNITS/500 ML PREMIX IV SCH (16:14)
[2022-09-10] MEDS: FUROSEMIDE 40 MG/4 ML VIAL IV SCH (16:28)
[2022-09-10] MEDS: BACLOFEN 20 MG TABLET PO SCH ×2 (16:29→20:41)
[2022-09-10] MEDS: amLODIPine 10 MG TABLET PO SCH (16:40)
[2022-09-10] MEDS: MIRTAZAPINE 30 MG TABLET PO SCH (20:40)
[2022-09-10] MEDS: DOCUSATE SODIUM 100 MG CAPSULE PO SCH (20:40)
[2022-09-10] MEDS: SPIRONOLACTONE 25 MG TABLET PO SCH (20:40)
[2022-09-10] MEDS: LABETALOL 200 MG TABLET PO SCH (20:40)
[2022-09-10] MEDS: traZODone 50 MG TABLET PO SCH (20:40)
[2022-09-10] MEDS: QUEtiapine 25 MG TABLET PO SCH (20:41)
[2022-09-10] MEDS: MAGNESIUM SULF RIDER 2 GM/50 ML PREMIX IV PRN ×2 (21:49→23:49)
[2022-09-11 04:01] LABS: Basophils % 0.3 % (0.0-0.8); Eosinophils # 0.5 10*3/uL (0.0-0.87); Eosinophils % 5.9 % (0.00-10.9); Hematocrit 32.7 VOL% (42.0-52.0); Immature Granulocytes % 0.5 %; Immature Granulocytes Absolute 0.05 #; Lymphocytes # 1.3 10*3/uL (1.4-4.0); Lymphocytes % 14.2 % (21.2-54.2); Mean Corpuscular HGB Conc 33.6 GM/DL (32-36); Mean Corpuscular Volume 90.3 FL (87-102); Mean Platelet Volume 9.7 FL (9.6-12.0); Monocytes # 0.5 10*3/uL (0.11-0.8); Monocytes % 5.6 % (1.7-12.7); Neutrophils % 73.5 % (38.7-73.9); Platelet Count 171 T/CUMM (130-400); Red Blood Count 3.62 MC/CUMM (3.8-5.5); Red Cell Distribution Width 13.5 % (9.3-17.3); White Blood Count 9.2 T/CUMM (4-12)
[2022-09-11 04:32] LABS: Albumin 2.8 G/DL (3.4-5.0); Bilirubin,Total 0.6 MG/DL (0.20-1.00); Calcium 8.3 MG/DL (8.5-10.1); Osmolality,Calculated 295.4 MOS/KG (273-304); Potassium 3.2 MMOL/L (3.5-5.1); Risk Ratio 2.25; Thyroid Stimulating Hormone 0.983 uIU/ml (0.358-3.74); Total Protein 5.6 G/DL (6.4-8.2); VLDL Cholesterol 22.6 MG/DL
[2022-09-11 04:34] LABS: Arterial Base Excess iSTAT 7 MMOL/L (-2.5-2.5); Arterial Bicarbonate iSTAT 29.4 MMOL/L (20-26); Arterial O2 Saturation iSTAT 100 % (95-100); Arterial PCO2 iSTAT 32 MM HG (35-48); Arterial PO2 iSTAT 438 MM HG (80-95); Arterial Total CO2 iSTAT 30 MMO/L (23-27); Arterial pH iSTAT 7.573 (7.35-7.45)
[2022-09-11] MEDS ORDERED: POTASSIUM CHLORIDE RIDER 10 MEQ/100 ML PREMIX IV PRN (05:01)
[2022-09-11] MEDS: POTASSIUM CHLORIDE RIDER 20 MEQ/100 ML PREMIX IV PRN ×2 (05:15→07:08)
[2022-09-11] MEDS: ASPIRIN 325 MG TABLET PO SCH (08:29)
[2022-09-11] MEDS: ATORVASTATIN 10 MG TABLET PO SCH (08:29)
[2022-09-11] MEDS: SPIRONOLACTONE 25 MG TABLET PO SCH ×2 (08:29→20:20)
[2022-09-11] MEDS: MONTELUKAST 10 MG TABLET PO SCH (08:29)
[2022-09-11] MEDS: amLODIPine 10 MG TABLET PO SCH (08:29)
[2022-09-11] MEDS: BACLOFEN 20 MG TABLET PO SCH ×3 (08:29→20:20)
[2022-09-11] MEDS: FUROSEMIDE 40 MG/4 ML VIAL IV SCH ×2 (08:29→15:02)
[2022-09-11] MEDS: TAMSULOSIN 0.4 MG CAPSULE PO SCH (08:30)
[2022-09-11] MEDS: DOCUSATE SODIUM 100 MG CAPSULE PO SCH ×2 (08:30→20:20)
[2022-09-11] MEDS: QUEtiapine 25 MG TABLET PO SCH ×2 (08:30→20:21)
[2022-09-11] MEDS: LABETALOL 200 MG TABLET PO SCH ×2 (08:30→20:20)
[2022-09-11] MEDS: THIAMINE 100 MG TABLET PO SCH (08:30)
[2022-09-11] MEDS ORDERED: ASPIRIN EC 325 MG TABLET PO SCH (09:00)
[2022-09-11] MEDS: HEPARIN DRIP 25,000 UNITS/500 ML PREMIX IV SCH ×2 (10:27→14:48)
[2022-09-11] MEDS: MIRTAZAPINE 30 MG TABLET PO SCH (20:20)
[2022-09-11] MEDS: traZODone 50 MG TABLET PO SCH (20:20)
[2022-09-12 04:08] LABS: Arterial Base Excess iSTAT 4 MMOL/L (-2.5-2.5); Arterial Bicarbonate iSTAT 27.8 MMOL/L (20-26); Arterial O2 Saturation iSTAT 98 % (95-100); Arterial PCO2 iSTAT 37 MM HG (35-48); Arterial PO2 iSTAT 92 MM HG (80-95); Arterial Total CO2 iSTAT 29 MMO/L (23-27)
[2022-09-12 04:53] LABS: Basophils % 0.2 % (0.0-0.8); Eosinophils # 0.7 10*3/uL (0.0-0.87); Eosinophils % 7.5 % (0.00-10.9); Hematocrit 31.4 VOL% (42.0-52.0); Hemoglobin 10.3 GM/DL (14.0-18.0); Immature Granulocytes % 0.4 %; Immature Granulocytes Absolute 0.04 #; Lymphocytes # 1.4 10*3/uL (1.4-4.0); Lymphocytes % 15.9 % (21.2-54.2); Mean Corpuscular HGB Conc 32.8 GM/DL (32-36); Mean Corpuscular Volume 91.8 FL (87-102); Mean Platelet Volume 9.9 FL (9.6-12.0); Monocytes # 0.7 10*3/uL (0.11-0.8); Monocytes % 7.2 % (1.7-12.7); Neutrophils % 68.8 % (38.7-73.9); Platelet Count 159 T/CUMM (130-400); Red Blood Count 3.42 MC/CUMM (3.8-5.5); Red Cell Distribution Width 13.9 % (9.3-17.3); White Blood Count 9.1 T/CUMM (4-12)
[2022-09-12 05:19] LABS: Albumin 2.5 G/DL (3.4-5.0); Bilirubin,Total 0.4 MG/DL (0.20-1.00); Calcium 8.1 MG/DL (8.5-10.1); Osmolality,Calculated 296.6 MOS/KG (273-304); Potassium 3.6 MMOL/L (3.5-5.1); Total Protein 5.6 G/DL (6.4-8.2)
[2022-09-12] MEDS: POTASSIUM CHLORIDE RIDER 20 MEQ/100 ML PREMIX IV PRN (06:50)
[2022-09-12] MEDS: THIAMINE 100 MG TABLET PO SCH (08:04)
[2022-09-12] MEDS: DOCUSATE SODIUM 100 MG CAPSULE PO SCH ×2 (08:04→20:12)
[2022-09-12] MEDS: SPIRONOLACTONE 25 MG TABLET PO SCH ×2 (08:04→20:13)
[2022-09-12] MEDS: QUEtiapine 25 MG TABLET PO SCH ×2 (08:04→20:12)
[2022-09-12] MEDS: TAMSULOSIN 0.4 MG CAPSULE PO SCH (08:04)
[2022-09-12] MEDS: LABETALOL 200 MG TABLET PO SCH ×2 (08:04→20:13)
[2022-09-12] MEDS: ASPIRIN 325 MG TABLET PO SCH (08:04)
[2022-09-12] MEDS: FUROSEMIDE 40 MG/4 ML VIAL IV SCH ×2 (08:04→15:10)
[2022-09-12] MEDS: amLODIPine 10 MG TABLET PO SCH (08:05)
[2022-09-12] MEDS: BACLOFEN 20 MG TABLET PO SCH ×3 (08:05→20:13)
[2022-09-12] MEDS: ATORVASTATIN 10 MG TABLET PO SCH (08:05)
[2022-09-12] MEDS: MONTELUKAST 10 MG TABLET PO SCH (08:05)
[2022-09-12] MEDS: HEPARIN DRIP 25,000 UNITS/500 ML PREMIX IV SCH ×2 (08:48→15:26)
[2022-09-12] MEDS: MIRTAZAPINE 30 MG TABLET PO SCH (20:12)
[2022-09-12] MEDS: traZODone 50 MG TABLET PO SCH (20:12)
[2022-09-13 03:48] LABS: Basophils % 0.1 % (0.0-0.8); Eosinophils # 0.8 10*3/uL (0.0-0.87); Hematocrit 30.4 VOL% (42.0-52.0); Immature Granulocytes % 0.5 %; Immature Granulocytes Absolute 0.04 #; Lymphocytes # 1.3 10*3/uL (1.4-4.0); Mean Corpuscular HGB Conc 32.9 GM/DL (32-36); Mean Corpuscular Volume 91.6 FL (87-102); Monocytes # 0.5 10*3/uL (0.11-0.8); Neutrophils % 63.4 % (38.7-73.9); Platelet Count 141 T/CUMM (130-400); Red Blood Count 3.32 MC/CUMM (3.8-5.5); White Blood Count 7.5 T/CUMM (4-12)
[2022-09-13 04:41] LABS: Eosinophils 10 % (0-10); Lymphocytes 22 % (20-55); Platelet Estimate Adequate; Total Cells Counted 100
[2022-09-13 04:45] LABS: Albumin 2.4 G/DL (3.4-5.0); Bilirubin,Total 0.4 MG/DL (0.20-1.00); Calcium 8.3 MG/DL (8.5-10.1); Potassium 3.8 MMOL/L (3.5-5.1); Total Protein 5.6 G/DL (6.4-8.2)
[2022-09-13 04:54] LABS: ABG Base Excess 3.8 MMOL/L (-2.5-2.5); ABG HCO3 27.8 MMOL/L (20-26); ABG Oxygen Saturation 98.2 % (95-100); ABG PCO2 41.4 MM HG (35-48); ABG PH 7.441 (7.35-7.45); ABG TCO2 25.4 MMOL/L (23-27)
[2022-09-13] MEDS: POTASSIUM CHLORIDE RIDER 20 MEQ/100 ML PREMIX IV PRN (05:00)
[2022-09-13] MEDS: HEPARIN DRIP 25,000 UNITS/500 ML PREMIX IV SCH (05:48)
[2022-09-13] MEDS: TAMSULOSIN 0.4 MG CAPSULE PO SCH (08:02)
[2022-09-13] MEDS: THIAMINE 100 MG TABLET PO SCH (08:02)
[2022-09-13] MEDS: DOCUSATE SODIUM 100 MG CAPSULE PO SCH ×2 (08:02→21:11)
[2022-09-13] MEDS: FUROSEMIDE 40 MG/4 ML VIAL IV SCH (08:02)
[2022-09-13] MEDS: amLODIPine 10 MG TABLET PO SCH (08:02)
[2022-09-13] MEDS: BACLOFEN 20 MG TABLET PO SCH ×3 (08:02→21:11)
[2022-09-13] MEDS: LABETALOL 200 MG TABLET PO SCH ×2 (08:02→21:11)
[2022-09-13] MEDS: HEPARIN 5,000 UNIT/1 ML VIAL SUBCUT SCH ×2 (08:02→21:11)
[2022-09-13] MEDS: ASPIRIN 325 MG TABLET PO SCH (08:02)
[2022-09-13] MEDS: MONTELUKAST 10 MG TABLET PO SCH (08:03)
[2022-09-13] MEDS: SPIRONOLACTONE 25 MG TABLET PO SCH ×2 (08:03→21:11)
[2022-09-13] MEDS: QUEtiapine 25 MG TABLET PO SCH ×2 (08:03→21:11)
[2022-09-13] MEDS: ATORVASTATIN 10 MG TABLET PO SCH (08:03)
[2022-09-13] MEDS: traZODone 50 MG TABLET PO SCH (21:11)
[2022-09-13] MEDS: MIRTAZAPINE 30 MG TABLET PO SCH (21:11)
[2022-09-14 04:04] LABS: Arterial Base Excess iSTAT 5 MMOL/L (-2.5-2.5); Arterial Bicarbonate iSTAT 30.1 MMOL/L (20-26); Arterial O2 Saturation iSTAT 96 % (95-100); Arterial PCO2 iSTAT 45 MM HG (35-48); Arterial PO2 iSTAT 82 MM HG (80-95); Arterial Total CO2 iSTAT 31 MMO/L (23-27); Arterial pH iSTAT 7.435 (7.35-7.45)
[2022-09-14 04:21] LABS: Phosphorous 3.9 MG/DL (2.5-4.9)
[2022-09-14] MEDS: amLODIPine 10 MG TABLET PO SCH (08:06)
[2022-09-14] MEDS: MONTELUKAST 10 MG TABLET PO SCH (08:06)
[2022-09-14] MEDS: QUEtiapine 25 MG TABLET PO SCH ×2 (08:06→20:47)
[2022-09-14] MEDS: ASPIRIN 325 MG TABLET PO SCH (08:06)
[2022-09-14] MEDS: ATORVASTATIN 10 MG TABLET PO SCH (08:06)
[2022-09-14] MEDS: TAMSULOSIN 0.4 MG CAPSULE PO SCH (08:07)
[2022-09-14] MEDS: BACLOFEN 20 MG TABLET PO SCH ×3 (08:07→20:47)
[2022-09-14] MEDS: HEPARIN 5,000 UNIT/1 ML VIAL SUBCUT SCH ×2 (08:07→20:47)
[2022-09-14] MEDS: DOCUSATE SODIUM 100 MG CAPSULE PO SCH ×2 (08:20→20:46)
[2022-09-14] MEDS: SPIRONOLACTONE 25 MG TABLET PO SCH ×2 (08:20→20:46)
[2022-09-14] MEDS: THIAMINE 100 MG TABLET PO SCH (08:20)
[2022-09-14] MEDS: LABETALOL 200 MG TABLET PO SCH ×2 (08:20→20:47)
[2022-09-14] MEDS ORDERED: ERGOCALCIFEROL 50,000 UNIT CAPSULE PO SCH (09:00)
[2022-09-14] MEDS: traZODone 50 MG TABLET PO SCH (20:46)
[2022-09-14] MEDS: MIRTAZAPINE 30 MG TABLET PO SCH (20:47)
[2022-09-15 04:18] LABS: Basophils % 0.4 % (0.0-0.8); Eosinophils # 0.7 10*3/uL (0.0-0.87); Eosinophils % 9.7 % (0.00-10.9); Hematocrit 32.3 VOL% (42.0-52.0); Hemoglobin 10.5 GM/DL (14.0-18.0); Immature Granulocytes % 0.6 %; Immature Granulocytes Absolute 0.04 #; Lymphocytes # 1.3 10*3/uL (1.4-4.0); Lymphocytes % 18.2 % (21.2-54.2); Mean Corpuscular HGB Conc 32.5 GM/DL (32-36); Mean Corpuscular Volume 92.6 FL (87-102); Mean Platelet Volume 9.4 FL (9.6-12.0); Monocytes # 0.7 10*3/uL (0.11-0.8); Monocytes % 9.7 % (1.7-12.7); Neutrophils % 61.4 % (38.7-73.9); Platelet Count 185 T/CUMM (130-400); Red Blood Count 3.49 MC/CUMM (3.8-5.5); Red Cell Distribution Width 13.2 % (9.3-17.3); White Blood Count 7.2 T/CUMM (4-12)
[2022-09-15 04:43] LABS: Arterial Base Excess iSTAT 4 MMOL/L (-2.5-2.5); Arterial Bicarbonate iSTAT 29.3 MMOL/L (20-26); Arterial O2 Saturation iSTAT 91 % (95-100); Arterial PCO2 iSTAT 47 MM HG (35-48); Arterial PO2 iSTAT 63 MM HG (80-95); Arterial Total CO2 iSTAT 31 MMO/L (23-27)
[2022-09-15 04:44] LABS: Potassium 4.6 MMOL/L (3.5-5.1)
[2022-09-15] MEDS ORDERED: OXYMETAZOLINE 0.05% NASAL SPRAY 15 ML BOTTLE BOTH NARES PRN (06:59)
[2022-09-15] MEDS: SPIRONOLACTONE 25 MG TABLET PO SCH ×2 (08:42→20:25)
[2022-09-15] MEDS: MONTELUKAST 10 MG TABLET PO SCH (08:42)
[2022-09-15] MEDS: TAMSULOSIN 0.4 MG CAPSULE PO SCH (08:42)
[2022-09-15] MEDS: ASPIRIN 325 MG TABLET PO SCH (08:42)
[2022-09-15] MEDS: amLODIPine 10 MG TABLET PO SCH (08:43)
[2022-09-15] MEDS: LABETALOL 200 MG TABLET PO SCH ×2 (08:43→20:26)
[2022-09-15] MEDS: ATORVASTATIN 10 MG TABLET PO SCH (08:43)
[2022-09-15] MEDS: BACLOFEN 20 MG TABLET PO SCH ×3 (08:43→20:25)
[2022-09-15] MEDS: THIAMINE 100 MG TABLET PO SCH (08:43)
[2022-09-15] MEDS: DOCUSATE SODIUM 100 MG CAPSULE PO SCH ×2 (08:44→20:25)
[2022-09-15] MEDS: QUEtiapine 25 MG TABLET PO SCH ×2 (08:44→20:26)
[2022-09-15] MEDS: HEPARIN 5,000 UNIT/1 ML VIAL SUBCUT SCH ×2 (08:44→20:25)
[2022-09-15] MEDS: MIRTAZAPINE 30 MG TABLET PO SCH (20:25)
[2022-09-15] MEDS: traZODone 50 MG TABLET PO SCH (20:25)
[2022-09-16 04:39] LABS: Basophils % 0.4 % (0.0-0.8); Eosinophils # 0.5 10*3/uL (0.0-0.87); Hematocrit 32.6 VOL% (42.0-52.0); Hemoglobin 10.7 GM/DL (14.0-18.0); Immature Granulocytes % 0.5 %; Immature Granulocytes Absolute 0.04 #; Lymphocytes # 1.5 10*3/uL (1.4-4.0); Lymphocytes % 19.3 % (21.2-54.2); Mean Corpuscular HGB Conc 32.8 GM/DL (32-36); Mean Corpuscular Volume 91.6 FL (87-102); Mean Platelet Volume 9.3 FL (9.6-12.0); Monocytes # 0.8 10*3/uL (0.11-0.8); Monocytes % 10.7 % (1.7-12.7); Neutrophils % 63.1 % (38.7-73.9); Platelet Count 208 T/CUMM (130-400); Red Blood Count 3.56 MC/CUMM (3.8-5.5); Red Cell Distribution Width 12.6 % (9.3-17.3); White Blood Count 7.6 T/CUMM (4-12)
[2022-09-16 05:00] LABS: Calcium 9.4 MG/DL (8.5-10.1); Osmolality,Calculated 294.8 MOS/KG (273-304); Potassium 4.4 MMOL/L (3.5-5.1)
[2022-09-16] MEDS: amLODIPine 10 MG TABLET PO SCH (08:14)
[2022-09-16] MEDS: MONTELUKAST 10 MG TABLET PO SCH (08:14)
[2022-09-16] MEDS: LABETALOL 200 MG TABLET PO SCH ×2 (08:14→20:46)
[2022-09-16] MEDS: HEPARIN 5,000 UNIT/1 ML VIAL SUBCUT SCH ×2 (08:14→20:54)
[2022-09-16] MEDS: SPIRONOLACTONE 25 MG TABLET PO SCH ×2 (08:14→20:46)
[2022-09-16] MEDS: THIAMINE 100 MG TABLET PO SCH (08:14)
[2022-09-16] MEDS: TAMSULOSIN 0.4 MG CAPSULE PO SCH (08:15)
[2022-09-16] MEDS: QUEtiapine 25 MG TABLET PO SCH ×2 (08:15→20:46)
[2022-09-16] MEDS: BACLOFEN 20 MG TABLET PO SCH ×3 (08:15→20:47)
[2022-09-16] MEDS: ATORVASTATIN 10 MG TABLET PO SCH (08:15)
[2022-09-16] MEDS: DOCUSATE SODIUM 100 MG CAPSULE PO SCH ×2 (08:15→20:46)
[2022-09-16] MEDS: ASPIRIN 325 MG TABLET PO SCH (08:16)
[2022-09-16] MEDS ORDERED: FUROSEMIDE 40 MG/4 ML VIAL IV ONE (08:18)
[2022-09-16] MEDS: traZODone 50 MG TABLET PO SCH (20:46)
[2022-09-16] MEDS: MIRTAZAPINE 30 MG TABLET PO SCH (20:46)
[2022-09-17 05:15] LABS: Basophils % 0.4 % (0.0-0.8); Eosinophils # 0.5 10*3/uL (0.0-0.87); Eosinophils % 4.8 % (0.00-10.9); Hematocrit 33.9 VOL% (42.0-52.0); Hemoglobin 11.2 GM/DL (14.0-18.0); Immature Granulocytes % 0.8 %; Immature Granulocytes Absolute 0.08 #; Lymphocytes # 1.7 10*3/uL (1.4-4.0); Lymphocytes % 17.8 % (21.2-54.2); Mean Corpuscular Volume 92.1 FL (87-102); Mean Platelet Volume 9.3 FL (9.6-12.0); Monocytes # 0.8 10*3/uL (0.11-0.8); Monocytes % 8.5 % (1.7-12.7); Neutrophils % 67.7 % (38.7-73.9); Platelet Count 252 T/CUMM (130-400); Red Blood Count 3.68 MC/CUMM (3.8-5.5); White Blood Count 9.8 T/CUMM (4-12)
[2022-09-17 05:39] LABS: Osmolality,Calculated 300.7 MOS/KG (273-304); Potassium 4.3 MMOL/L (3.5-5.1)
[2022-09-17 05:48] LABS: Phosphorous 3.7 MG/DL (2.5-4.9)
[2022-09-17] MEDS: QUEtiapine 25 MG TABLET PO SCH ×2 (08:02→20:40)
[2022-09-17] MEDS: ASPIRIN 325 MG TABLET PO SCH (08:03)
[2022-09-17] MEDS: TAMSULOSIN 0.4 MG CAPSULE PO SCH (08:03)
[2022-09-17] MEDS: SPIRONOLACTONE 25 MG TABLET PO SCH ×2 (08:03→20:41)
[2022-09-17] MEDS: MONTELUKAST 10 MG TABLET PO SCH (08:03)
[2022-09-17] MEDS: THIAMINE 100 MG TABLET PO SCH (08:03)
[2022-09-17] MEDS: BACLOFEN 20 MG TABLET PO SCH ×3 (08:03→20:39)
[2022-09-17] MEDS: ATORVASTATIN 10 MG TABLET PO SCH (08:03)
[2022-09-17] MEDS: DOCUSATE SODIUM 100 MG CAPSULE PO SCH ×2 (08:03→20:39)
[2022-09-17] MEDS: amLODIPine 10 MG TABLET PO SCH (08:03)
[2022-09-17] MEDS: LABETALOL 200 MG TABLET PO SCH ×2 (08:03→20:39)
[2022-09-17] MEDS: HEPARIN 5,000 UNIT/1 ML VIAL SUBCUT SCH ×2 (08:04→20:41)
[2022-09-17] MEDS ORDERED: TUBERCULIN SKIN TEST 0.1 ML SYRINGE INTRADERM ONE (08:19)
[2022-09-17] MEDS ORDERED: FUROSEMIDE 20 MG TABLET PO SCH (09:00)
[2022-09-17 15:48] VITALS: BP 121/62
[2022-09-17] MEDS: traZODone 50 MG TABLET PO SCH (20:41)
[2022-09-17] MEDS: MIRTAZAPINE 30 MG TABLET PO SCH (20:41)
[2022-09-18] MEDS ORDERED: FUROSEMIDE 20 MG TABLET PO SCH (09:00)
[2022-09-18] MEDS: TAMSULOSIN 0.4 MG CAPSULE PO SCH (09:10)
[2022-09-18] MEDS: DOCUSATE SODIUM 100 MG CAPSULE PO SCH (09:10)
[2022-09-18] MEDS: ASPIRIN 325 MG TABLET PO SCH (09:10)
[2022-09-18] MEDS: QUEtiapine 25 MG TABLET PO SCH (09:11)
[2022-09-18] MEDS: BACLOFEN 20 MG TABLET PO SCH (09:11)
[2022-09-18] MEDS: MONTELUKAST 10 MG TABLET PO SCH (09:11)
[2022-09-18] MEDS: ATORVASTATIN 10 MG TABLET PO SCH (09:12)
[2022-09-18] MEDS: THIAMINE 100 MG TABLET PO SCH (09:14)
[2022-09-18] MEDS: amLODIPine 10 MG TABLET PO SCH (09:14)
[2022-09-18] MEDS: LABETALOL 200 MG TABLET PO SCH (09:30)
[2022-09-18] MEDS: SPIRONOLACTONE 25 MG TABLET PO SCH (09:30)
[2022-09-18] MEDS: HEPARIN 5,000 UNIT/1 ML VIAL SUBCUT SCH (09:30)
== END 2022-09-18 11:40 | disposition swing bed (61) | DRG 207 ==
LOC: EDBD → EDUNIT# → N.ED 08:17 → N.ICU 12:36 → SUATTDRO 12:36 → N.ICU 13:31
PROVIDERS: ADMIT Family Medicine; ATTEND Internal Medicine